=== PATIENT | female | born 1960 | race African-American/Black ===

== ENCOUNTER 2021-08-05 15:07 | Outpatient (CLI) | payer OTHER ==
[2021-08-06 16:11] LABS: SARS-CoV-2 PCR by NAA Not Detected (NotDetected)
== END 2021-08-05 15:08 | disposition home or self-care (01) ==
LOC: LABBT 15:07 → MERGE 15:07 → LABBT 15:08
PROVIDERS: ATTEND Specialist
DX: Z01.818 Encounter for other preprocedural examination (principal); E11.9 Type 2 diabetes mellitus without complications; Z93.2 Ileostomy status; Z93.3 Colostomy status; Z90.49 Acquired absence of other specified parts of digestive tract; Z79.01 Long term (current) use of anticoagulants; Z20.822 Contact with and (suspected) exposure to COVID-19
CPT/HCPCS: 93005; 93010; U0003; U0005

== ENCOUNTER 2021-10-12 01:40 | Emergency (ER) | payer MEDICARE, OTHER ==
[2021-10-12 02:41] LABS: #Basophils 0.1 thou/uL (0.0-0.2); #Eosinphils 0.1 thou/uL (0.0-0.7); #Lymphocytes 1.5 thou/uL (1.20-3.40); #Monocytes 0.6 thou/uL (0.11-0.59); %Eosinophils 2.4 % (0.0-10.0); %Lymphocytes 24.1 % (21.0-51.0); %Monocytes 8.9 % (0.0-10.0); %Neutrophils 63.6 % (42.0-75.0); Hemoglobin 10.3 g/dL (12.0-16.0); Mean Corpuscular HGB CONC 31.9 g/dL (32.0-36.0); Mean Corpuscular Hemoglobin 31.6 pg (27.0-31.0); Mean Corpuscular Volume 98.9 fL (78.0-98.0); Mean Platelet Volume 7.2 fL (7.4-10.4); Platelet Count 205 thou/uL (130-400); RBC Distribution Width 15.6 % (11.5-14.5); Red Blood Cell (RBC) Count 3.27 mill/uL (4.20-5.40); White Blood Cell (WBC) Count 6.3 thou/uL (4.8-10.8)
[2021-10-12 02:46] LABS: Bacteria/HPF None Seen HPF (None Seen); Bilirubin Negative (Negative); Blood, Urine 1+ (Negative); Clarity Clear (Clear); Glucose, Urine (Dipstick) 200 mg/dL (Negative); Ketone, Urine Negative (Negative); Leukocyte Negative Leu/uL (Negative); Nitrite Negative (Negative); Protein, Urine (Dipstick) 600 mg/dL (Neg-Trace); RBC/HPF 0-3 HPF (0-3); Specific Gravity, Urine 1.015 (1.002-1.036); Urobilinogen Normal mg/dL (Less than 2); WBC/HPF 21-50 HPF (0-3)
[2021-10-12 03:01] LABS: ALT (SGPT) 25 U/L (8-55); AST (SGOT) 19 U/L (5-34); Albumin 3.6 g/dL (3.5-5.0); Alkaline Phosphatase 253 U/L (40-110); Anion Gap 22 mmol/L (10-20); BUN (Urea Nitrogen) 104 mg/dL (9.8-20.1); Bilirubin, Total 0.7 mg/dL (0.2-1.2); Calc. Creatinine Clearance 0 mL/min (70-130); Calcium 9.6 mg/dL (7.8-10.44); Carbon Dioxide 23 mmol/L (22-29); Chloride 99 mmol/L (98-107); Globulin 3.4 g/dL (2.4-3.5); Glucose 87 mg/dL (70-105); Sodium 138 mmol/L (136-145)
== END 2021-10-12 04:30 | disposition home or self-care (01) ==
LOC: ERS 01:40
DX: N39.0 Urinary tract infection, site not specified (principal); E87.5 Hyperkalemia; E11.22 Type 2 diabetes mellitus with diabetic chronic kidney disease; I12.9 Hypertensive chronic kidney disease with stage 1 through stage 4 chronic kidney disease, or unspecified chronic kidney disease; N18.9 Chronic kidney disease, unspecified; E78.5 Hyperlipidemia, unspecified
CPT/HCPCS: 36415; 51701; 74176; 80053; 81003; 81015; 85025; 87086; 93005

== ENCOUNTER 2021-10-17 23:20 | Emergency (ER) | payer MEDICARE ==
[2021-10-18 00:55] LABS: #Eosinphils 0.1 thou/uL (0.0-0.7); #Lymphocytes 1.3 thou/uL (1.20-3.40); #Monocytes 0.6 thou/uL (0.11-0.59); #Neutrophils 4.4 thou/uL (1.40-6.50); %Basophils 0.5 % (0.0-1.0); %Eosinophils 2.1 % (0.0-10.0); %Lymphocytes 19.5 % (21.0-51.0); %Monocytes 9.9 % (0.0-10.0); Hemoglobin 10.8 g/dL (12.0-16.0); Mean Corpuscular Hemoglobin 31.1 pg (27.0-31.0); Platelet Count 245 thou/uL (130-400); RBC Distribution Width 15.3 % (11.5-14.5); Red Blood Cell (RBC) Count 3.47 mill/uL (4.20-5.40); White Blood Cell (WBC) Count 6.5 thou/uL (4.8-10.8)
[2021-10-18 01:18] LABS: ALT (SGPT) 21 U/L (8-55); AST (SGOT) 23 U/L (5-34); Albumin 3.7 g/dL (3.5-5.0); Alkaline Phosphatase 260 U/L (40-110); Anion Gap 18 mmol/L (10-20); BUN (Urea Nitrogen) 44 mg/dL (9.8-20.1); Bilirubin, Total 0.4 mg/dL (0.2-1.2); Calc. Creatinine Clearance 0 mL/min (70-130); Carbon Dioxide 27 mmol/L (22-29); Chloride 98 mmol/L (98-107); Globulin 3.8 g/dL (2.4-3.5); Glucose 107 mg/dL (70-105); Potassium 5.6 mmol/L (3.5-5.1); Protein, Total 7.5 g/dL (6.0-8.3); Sodium 137 mmol/L (136-145)
[2021-10-18 03:33] LABS: HBSAB Concentration Less than 8.00 mIU/mL; HBSAg Index 0.24 S/CO (0-0.99); Hep B Surf AB Non-Reactive (NonReactive); Hep B Surf Ag Non-Reactive S/CO (NonReactive)
== END 2021-10-18 06:12 | disposition home or self-care (01) ==
LOC: ERS 23:20
DX: I12.0 Hypertensive chronic kidney disease with stage 5 chronic kidney disease or end stage renal disease (principal); E11.22 Type 2 diabetes mellitus with diabetic chronic kidney disease; N18.6 End stage renal disease; E87.70 Fluid overload, unspecified; E78.5 Hyperlipidemia, unspecified
CPT/HCPCS: 36415; 71045; 80053; 85025; 86706; 87340

== ENCOUNTER 2021-12-26 15:28 | Inpatient (IN) | payer OTHER ==
[2021-12-26] MEDS ORDERED: Labetalol HCl 100 MG/20 ML VIAL ONE (16:06)
[2021-12-26 16:15] LABS: #Lymphocytes 0.7 thou/uL (1.20-3.40); #Monocytes 0.7 thou/uL (0.11-0.59); #Neutrophils 4.5 thou/uL (1.40-6.50); %Basophils 0.1 % (0.0-1.0); %Eosinophils 0.3 % (0.0-10.0); %Lymphocytes 11.2 % (21.0-51.0); %Monocytes 11.4 % (0.0-10.0); %Neutrophils 76.9 % (42.0-75.0); Hemoglobin 10.6 g/dL (12.0-16.0); Mean Corpuscular HGB CONC 31.2 g/dL (32.0-36.0); Mean Corpuscular Hemoglobin 30.7 pg (27.0-31.0); Mean Corpuscular Volume 98.6 fL (78.0-98.0); Mean Platelet Volume 8.1 fL (7.4-10.4); Platelet Count 170 thou/uL (130-400); RBC Distribution Width 15.6 % (11.5-14.5); Red Blood Cell (RBC) Count 3.45 mill/uL (4.20-5.40); White Blood Cell (WBC) Count 5.8 thou/uL (4.8-10.8)
[2021-12-26] MEDS ORDERED: Ipratropium Bromide 2.5 ml Neb ONE (16:21)
[2021-12-26] MEDS ORDERED: Albuterol Sulfate 2.5 mg/3 ml Neb ONE (16:21)
[2021-12-26 16:36] LABS: ALT (SGPT) 20 U/L (8-55); AST (SGOT) 30 U/L (5-34); Albumin 3.7 g/dL (3.5-5.0); Alkaline Phosphatase 348 U/L (40-110); Anion Gap 21 mmol/L (10-20); BUN (Urea Nitrogen) 47 mg/dL (9.8-20.1); Bilirubin, Total 0.6 mg/dL (0.2-1.2); Calc. Creatinine Clearance 0 mL/min (70-130); Calcium 9.2 mg/dL (7.8-10.44); Carbon Dioxide 23 mmol/L (22-29); Chloride 94 mmol/L (98-107); Estimated GFR 7; Globulin 3.9 g/dL (2.4-3.5); Glucose 116 mg/dL (70-105); Potassium 5.3 mmol/L (3.5-5.1); Protein, Total 7.6 g/dL (6.0-8.3); Sodium 133 mmol/L (136-145)
[2021-12-26] MEDS ORDERED: Ondansetron PF 4 MG/2 ML Vial IVP PRN (17:57)
[2021-12-26] MEDS ORDERED: Senokot S 8.6-50 MG TAB PO PRN (17:57)
[2021-12-26 18:54] LABS: HBSAB Concentration Less than 8.00 mIU/mL; HBSAg Index 0.23 S/CO (0-0.99); Hep B Surf AB Non-Reactive (NonReactive); Hep B Surf Ag Non-Reactive S/CO (NonReactive)
[2021-12-26 19:13] LABS: SARS-CoV-2 NAA Rapid Test DETECTED (NotDetected)
[2021-12-26] MEDS ORDERED: risperiDONE 1 MG TAB ONE (23:26)
[2021-12-27] MEDS: risperiDONE 1 MG TAB PO SCH ×2 (00:25→21:39)
[2021-12-27] MEDS: Calcium Acetate 667 MG CAP PO SCH ×4 (01:08→21:39)
[2021-12-27] MEDS: Apixaban 2.5 MG TAB PO SCH ×3 (01:08→21:39)
[2021-12-27 06:30] LABS: #Lymphocytes 0.8 thou/uL (1.20-3.40); #Monocytes 0.8 thou/uL (0.11-0.59); #Neutrophils 3.5 thou/uL (1.40-6.50); %Basophils 0.2 % (0.0-1.0); %Eosinophils 0.7 % (0.0-10.0); %Lymphocytes 16.1 % (21.0-51.0); %Monocytes 14.5 % (0.0-10.0); %Neutrophils 68.4 % (42.0-75.0); Hemoglobin 10.2 g/dL (12.0-16.0); Mean Corpuscular HGB CONC 29.3 g/dL (32.0-36.0); Mean Corpuscular Hemoglobin 29.2 pg (27.0-31.0); Mean Corpuscular Volume 99.8 fL (78.0-98.0); Platelet Count 182 thou/uL (130-400); RBC Distribution Width 15.5 % (11.5-14.5); Red Blood Cell (RBC) Count 3.51 mill/uL (4.20-5.40); White Blood Cell (WBC) Count 5.2 thou/uL (4.8-10.8)
[2021-12-27 06:52] LABS: Anion Gap 17 mmol/L (10-20); BUN (Urea Nitrogen) 28 mg/dL (9.8-20.1); Calc. Creatinine Clearance 0 mL/min (70-130); Carbon Dioxide 27 mmol/L (22-29); Chloride 95 mmol/L (98-107); Estimated GFR 10; Glucose 130 mg/dL (70-105); Potassium 4.3 mmol/L (3.5-5.1); Sodium 135 mmol/L (136-145)
[2021-12-27 07:19] LABS: MDiff Complete? YES; Platelet Morphology Comment Appears Adequate; Polychromasia SLIGHT = 2-3 cells (100X) (0-2/hpf)
[2021-12-27] MEDS: Folic Acid/Vit B Comp W-C PO SCH (09:44)
[2021-12-27] MEDS ORDERED: Ipratropium/Albuterol Sulfate 4 GM AER IH SCH (13:45)
[2021-12-27] MEDS: Guaifenesin DM 100-10/5 ML UDCUP PO PRN (21:39)
[2021-12-27] MEDS ORDERED: Labetalol HCl 100 MG/20 ML VIAL SLOW IVP PRN (21:50)
[2021-12-28] MEDS: Guaifenesin DM 100-10/5 ML UDCUP PO PRN ×2 (06:44→20:42)
[2021-12-28] MEDS: Ipratropium/Albuterol Sulfate 4 GM AER IH SCH ×5 (07:40→20:43)
[2021-12-28] MEDS: Calcium Acetate 667 MG CAP PO SCH ×3 (10:19→20:42)
[2021-12-28] MEDS: Apixaban 2.5 MG TAB PO SCH ×2 (10:19→20:42)
[2021-12-28] MEDS: Folic Acid/Vit B Comp W-C PO SCH (10:19)
[2021-12-28] MEDS ORDERED: Dexamethasone 6 MG in Sodium Chloride 0.9% 50 ML IVPB SCH (14:47)
[2021-12-28] MEDS ORDERED: Dexamethasone 4 mg/ml Vial SLOW IVP SCH (15:00)
[2021-12-28] MEDS: Loperamide HCl 2 MG CAP PO PRN (20:41)
[2021-12-28] MEDS: risperiDONE 1 MG TAB PO SCH (20:42)
[2021-12-28] MEDS: Acetaminophen 325 MG TAB PO PRN (20:42)
[2021-12-29] MEDS: Acetaminophen 325 MG TAB PO PRN ×2 (01:39→20:25)
[2021-12-29] MEDS: Loperamide HCl 2 MG CAP PO PRN ×2 (01:39→20:25)
[2021-12-29] MEDS: Albuterol 200 PUFF (6.7GM INHALER) INH SCH ×4 (01:39→20:25)
[2021-12-29] MEDS: Guaifenesin DM 100-10/5 ML UDCUP PO PRN ×2 (01:39→20:24)
[2021-12-29 06:13] VITALS: BMI 41.4
[2021-12-29] MEDS: Folic Acid/Vit B Comp W-C PO SCH (09:21)
[2021-12-29] MEDS: Dexamethasone 4 mg/ml Vial SLOW IVP SCH (09:21)
[2021-12-29] MEDS: Apixaban 2.5 MG TAB PO SCH ×2 (09:21→20:25)
[2021-12-29] MEDS: Calcium Acetate 667 MG CAP PO SCH ×3 (09:21→20:25)
[2021-12-29] MEDS: risperiDONE 1 MG TAB PO SCH (20:25)
[2021-12-29] MEDS ORDERED: Melatonin 3 MG TAB PO PRN (23:43)
[2021-12-30] MEDS: Acetaminophen 325 MG TAB PO PRN (00:51)
[2021-12-30] MEDS: Albuterol 200 PUFF (6.7GM INHALER) INH SCH ×4 (00:51→22:06)
[2021-12-30] MEDS: Guaifenesin DM 100-10/5 ML UDCUP PO PRN ×2 (04:17→21:50)
[2021-12-30] MEDS: Dexamethasone 4 mg/ml Vial SLOW IVP SCH (10:46)
[2021-12-30] MEDS: Calcium Acetate 667 MG CAP PO SCH ×3 (10:46→21:44)
[2021-12-30] MEDS: Folic Acid/Vit B Comp W-C PO SCH (10:46)
[2021-12-30] MEDS: Apixaban 2.5 MG TAB PO SCH ×2 (10:46→21:44)
[2021-12-30 20:18] LABS: Anion Gap 25 mmol/L (10-20); BUN (Urea Nitrogen) 90 mg/dL (9.8-20.1); Calc. Creatinine Clearance 10 mL/min (70-130); Calcium 7.6 mg/dL (7.8-10.44); Carbon Dioxide 22 mmol/L (22-29); Chloride 93 mmol/L (98-107); Estimated GFR 4; Glucose 241 mg/dL (70-105); Potassium 6.4 mmol/L (3.5-5.1); Sodium 134 mmol/L (136-145)
[2021-12-30] MEDS: risperiDONE 1 MG TAB PO SCH (21:57)
[2021-12-31] MEDS: Albuterol 200 PUFF (6.7GM INHALER) INH SCH ×4 (01:17→20:38)
[2021-12-31] MEDS: Acetaminophen 325 MG TAB PO PRN (01:31)
[2021-12-31] MEDS: Dexamethasone 4 mg/ml Vial SLOW IVP SCH (08:49)
[2021-12-31] MEDS: Calcium Acetate 667 MG CAP PO SCH ×3 (08:50→20:38)
[2021-12-31] MEDS: Folic Acid/Vit B Comp W-C PO SCH (08:50)
[2021-12-31] MEDS: Apixaban 2.5 MG TAB PO SCH ×2 (08:50→20:38)
[2021-12-31 17:07] LABS: Anion Gap 23 mmol/L (10-20); BUN (Urea Nitrogen) 66 mg/dL (9.8-20.1); CRP (Inflammatory) 3.07 mg/dL (= or < 0.5); Calc. Creatinine Clearance 14 mL/min (70-130); Calcium 8.3 mg/dL (7.8-10.44); Carbon Dioxide 21 mmol/L (22-29); Chloride 95 mmol/L (98-107); Estimated GFR 5; Glucose 246 mg/dL (70-105); Potassium 5.7 mmol/L (3.5-5.1); Sodium 133 mmol/L (136-145)
[2021-12-31] MEDS: risperiDONE 1 MG TAB PO SCH (20:38)
[2021-12-31] MEDS: Guaifenesin DM 100-10/5 ML UDCUP PO PRN (20:38)
[2021-12-31] MEDS: Loperamide HCl 2 MG CAP PO PRN (23:09)
[2022-01-01] MEDS: Albuterol 200 PUFF (6.7GM INHALER) INH SCH ×4 (02:55→21:04)
[2022-01-01] MEDS: Calcium Acetate 667 MG CAP PO SCH ×3 (08:36→21:05)
[2022-01-01] MEDS: Folic Acid/Vit B Comp W-C PO SCH (08:36)
[2022-01-01] MEDS: Dexamethasone 4 mg/ml Vial SLOW IVP SCH (08:36)
[2022-01-01] MEDS: Apixaban 2.5 MG TAB PO SCH ×2 (08:36→21:05)
[2022-01-01] MEDS: Guaifenesin DM 100-10/5 ML UDCUP PO PRN ×2 (08:40→21:04)
[2022-01-01 14:51] LABS: Magnesium 2.1 mg/dL (1.6-2.6)
[2022-01-01] MEDS: risperiDONE 1 MG TAB PO SCH (21:05)
[2022-01-01] MEDS: hydrALAZINE 20 MG/ML VIAL SLOW IVP PRN (21:05)
[2022-01-02] MEDS: Albuterol 200 PUFF (6.7GM INHALER) INH SCH ×4 (04:48→20:57)
[2022-01-02] MEDS: hydrALAZINE 20 MG/ML VIAL SLOW IVP PRN ×2 (04:58→16:40)
[2022-01-02] MEDS: Apixaban 2.5 MG TAB PO SCH ×2 (11:21→20:57)
[2022-01-02] MEDS: Calcium Acetate 667 MG CAP PO SCH ×3 (11:22→16:40)
[2022-01-02] MEDS: Dexamethasone 4 mg/ml Vial SLOW IVP SCH (13:51)
[2022-01-02] MEDS: Folic Acid/Vit B Comp W-C PO SCH (13:51)
[2022-01-02 15:04] LABS: Actual Bicarbonate (HCO3a) 28.4 mEq/L (22-28); Base Excess (BEa) 2.1 mEq/L (-2.0 to +3.0); CO2 Tension 51.3 mmHg (35.0-45.0); Calcium, Ionized (arterial) 1.08 mmol/L (1.12-1.30); Carboxyhemoglobin (COHb) 1.2 gm% (0.0-3.0); Hemoglobin (Hb) 12.7 g/dL (12.0-16.0); O2 Tension (PaO2), arterial 74.3 mmHg (80.0-100.0); Potassium - ABG Lab 3.85 mmol/L (3.70-5.30); pH, Arterial 7.36 (7.35-7.45)
[2022-01-02 15:05] LABS: Puncture Site LRA
[2022-01-02 16:25] LABS: #Lymphocytes 0.5 thou/uL (1.20-3.40); #Monocytes 0.3 thou/uL (0.11-0.59); %Eosinophils 0.4 % (0.0-10.0); %Lymphocytes 10.7 % (21.0-51.0); %Neutrophils 81.9 % (42.0-75.0); Hemoglobin 10.9 g/dL (12.0-16.0); Mean Corpuscular HGB CONC 31.3 g/dL (32.0-36.0); Mean Corpuscular Hemoglobin 30.6 pg (27.0-31.0); Mean Corpuscular Volume 97.7 fL (78.0-98.0); Mean Platelet Volume 7.8 fL (7.4-10.4); Platelet Count 191 thou/uL (130-400); RBC Distribution Width 15.2 % (11.5-14.5); Red Blood Cell (RBC) Count 3.58 mill/uL (4.20-5.40); White Blood Cell (WBC) Count 4.9 thou/uL (4.8-10.8)
[2022-01-02 16:39] LABS: Anion Gap 17 mmol/L (10-20); BUN (Urea Nitrogen) 47 mg/dL (9.8-20.1); Calc. Creatinine Clearance 17 mL/min (70-130); Carbon Dioxide 26 mmol/L (22-29); Chloride 98 mmol/L (98-107); Estimated GFR 7; Glucose 148 mg/dL (70-105); Potassium 4.3 mmol/L (3.5-5.1); Sodium 137 mmol/L (136-145)
[2022-01-02] MEDS ORDERED: traMADol HCl 50 MG TAB PO PRN (18:10)
[2022-01-02] MEDS: risperiDONE 1 MG TAB PO SCH (20:57)
[2022-01-03] MEDS: Albuterol 200 PUFF (6.7GM INHALER) INH SCH ×4 (03:30→19:01)
[2022-01-03] MEDS: Guaifenesin DM 100-10/5 ML UDCUP PO PRN (06:31)
[2022-01-03] MEDS ORDERED: traMADol HCl 50 MG TAB PO PRN (09:39)
[2022-01-03] MEDS: Apixaban 2.5 MG TAB PO SCH (09:51)
[2022-01-03] MEDS: Calcium Acetate 667 MG CAP PO SCH ×3 (09:51→17:29)
[2022-01-03] MEDS: Dexamethasone 4 mg/ml Vial SLOW IVP SCH (09:51)
[2022-01-03] MEDS: Folic Acid/Vit B Comp W-C PO SCH (09:51)
[2022-01-03 09:55] LABS: Anion Gap 21 mmol/L (10-20); BUN (Urea Nitrogen) 75 mg/dL (9.8-20.1); Calc. Creatinine Clearance 13 mL/min (70-130); Calcium 9.2 mg/dL (7.8-10.44); Carbon Dioxide 25 mmol/L (22-29); Chloride 97 mmol/L (98-107); Estimated GFR 5; Glucose 113 mg/dL (70-105); Potassium 4.5 mmol/L (3.5-5.1); Sodium 138 mmol/L (136-145)
[2022-01-03 16:03] VITALS: BP 162/90; TEMP 98.3
== END 2022-01-03 18:56 | disposition home or self-care (01) | DRG 177 ==
LOC: ERS 15:28 → ERHOLD 17:40 → 2NO 12-27 13:15 → T4-B 01-03 10:51
PROVIDERS: ADMIT Internal Medicine; ATTEND Internal Medicine
PROC: 5A09357 Assistance with Respiratory Ventilation, Less than 24 Consecutive Hours, Continuous Positive Airway Pressure (ICD-10-PCS; principal; 2021-12-26)
PROC: 8E0ZXY6 Isolation (ICD-10-PCS; 2021-12-26)
DX: U07.1 COVID-19 (principal); J96.21 Acute and chronic respiratory failure with hypoxia; N18.6 End stage renal disease; I13.0 Hypertensive heart and chronic kidney disease with heart failure and stage 1 through stage 4 chronic kidney disease, or unspecified chronic kidney disease; E87.1 Hypo-osmolality and hyponatremia; E87.2 Acidosis; E87.0 Hyperosmolality and hypernatremia; Z68.41 Body mass index [BMI] 40.0-44.9, adult; J44.9 Chronic obstructive pulmonary disease, unspecified; I50.9 Heart failure, unspecified; E11.22 Type 2 diabetes mellitus with diabetic chronic kidney disease; E78.5 Hyperlipidemia, unspecified; F41.9 Anxiety disorder, unspecified; R19.7 Diarrhea, unspecified; R53.83 Other fatigue; G47.33 Obstructive sleep apnea (adult) (pediatric); E66.9 Obesity, unspecified; F25.0 Schizoaffective disorder, bipolar type; D63.1 Anemia in chronic kidney disease; E87.5 Hyperkalemia; E88.09 Other disorders of plasma-protein metabolism, not elsewhere classified; R53.81 Other malaise; E87.70 Fluid overload, unspecified; Z88.0 Allergy status to penicillin; Z88.8 Allergy status to other drugs, medicaments and biological substances; Z91.09 Other allergy status, other than to drugs and biological substances; Z99.2 Dependence on renal dialysis; Z99.81 Dependence on supplemental oxygen; Z79.899 Other long term (current) drug therapy; Z86.718 Personal history of other venous thrombosis and embolism; Z79.4 Long term (current) use of insulin; Z90.49 Acquired absence of other specified parts of digestive tract; Z85.41 Personal history of malignant neoplasm of cervix uteri; Z92.3 Personal history of irradiation; Z80.1 Family history of malignant neoplasm of trachea, bronchus and lung; Z99.3 Dependence on wheelchair; Z79.01 Long term (current) use of anticoagulants; Z98.890 Other specified postprocedural states
CPT/HCPCS: 36415; 36416; 36600; 71045; 80048; 80053; 82553; 82805; 83605; 83735; 83880; 84484; 85025; 86140; 86706; 87340; 90935; 93005; 94644; 94660; 94760; 96374; G0257; J0360; J1100; J3535; J7611; J7620; U0002

== ENCOUNTER 2022-01-03 17:00 | Outpatient (CLI) | payer OTHER | END 2022-01-03 17:01 | disposition home or self-care (01) | LOC: SLEEPLAB 17:00 | PROVIDERS: ATTEND Internal Medicine | DX: G47.33 Obstructive sleep apnea (adult) (pediatric) (principal); R09.89 Other specified symptoms and signs involving the circulatory and respiratory systems; F31.9 Bipolar disorder, unspecified; E11.9 Type 2 diabetes mellitus without complications; E66.9 Obesity, unspecified; I10 Essential (primary) hypertension; Z68.41 Body mass index [BMI] 40.0-44.9, adult | CPT/HCPCS: 95800 ==

== ENCOUNTER 2022-08-21 17:45 | Inpatient (IN) | payer MEDICARE, OTHER ==
[2022-08-21] MEDS ORDERED: Ondansetron PF 4 MG/2 ML Vial ONE (18:37)
[2022-08-21] MEDS ORDERED: Morphine 4 MG/ML VIAL ONE (18:37)
[2022-08-21 18:46] LABS: #Eosinphils 0.2 thou/uL (0.0-0.7); #Lymphocytes 1.1 thou/uL (1.20-3.40); #Monocytes 0.6 thou/uL (0.11-0.59); #Neutrophils 4.9 thou/uL (1.40-6.50); %Basophils 0.1 % (0.0-1.0); %Eosinophils 2.5 % (0.0-10.0); %Lymphocytes 16.3 % (21.0-51.0); %Monocytes 8.8 % (0.0-10.0); %Neutrophils 72.2 % (42.0-75.0); Hemoglobin 10.9 g/dL (12.0-16.0); Mean Corpuscular HGB CONC 30.4 g/dL (32.0-36.0); Mean Corpuscular Hemoglobin 31.1 pg (27.0-31.0); Mean Platelet Volume 7.7 fL (7.4-10.4); Platelet Count 230 10x3/uL (130-400); RBC Distribution Width 16.8 % (11.5-14.5); Red Blood Cell (RBC) Count 3.51 mill/uL (4.20-5.40); White Blood Cell (WBC) Count 6.8 10x3/uL (4.8-10.8)
[2022-08-21 19:05] LABS: ALT (SGPT) 24 U/L (8-55); AST (SGOT) 22 U/L (5-34); Albumin 3.7 g/dL (3.5-5.0); Alkaline Phosphatase 296 U/L (40-110); Anion Gap 17 mmol/L (10-20); BUN (Urea Nitrogen) 41 mg/dL (9.8-20.1); Bilirubin, Total 0.5 mg/dL (0.2-1.2); Calc. Creatinine Clearance 0 mL/min (70-130); Calcium 9.7 mg/dL (7.8-10.44); Carbon Dioxide 30 mmol/L (22-29); Chloride 95 mmol/L (98-107); Estimated GFR 6; Globulin 3.7 g/dL (2.4-3.5); Glucose 106 mg/dL (70-105); Lipase 16 U/L (8-78); Potassium 4.7 mmol/L (3.5-5.1); Protein, Total 7.4 g/dL (6.0-8.3); Sodium 137 mmol/L (136-145)
[2022-08-21 19:26] LABS: CKMB 1.5 ng/mL (0-6.6)
[2022-08-21] MEDS ORDERED: Cefepime 2 GM VIAL ONE (19:51)
[2022-08-21] MEDS ORDERED: Ketamine In 0.9 % NaCl 50 MG/5 ML SYRINGE ONE (20:22)
[2022-08-21] MEDS ORDERED: Midazolam HCl 2 mg/2 ml Vial ONE (20:39)
[2022-08-21] MEDS ORDERED: fentaNYL 50 mcg/mL 1 mL Vial ONE (20:46)
[2022-08-21] MEDS ORDERED: Propofol 1,000 MG/100 ML VIAL IV ONE (20:56)
[2022-08-21] MEDS ORDERED: Albuterol 2.5 MG/0.5 ML NEB ONE (21:13)
[2022-08-21] MEDS ORDERED: Fentanyl CADD 100 ML IV SCH (21:30)
[2022-08-21] MEDS ORDERED: Ipratropium/Albuterol 3 ML NEB NEB PRN (21:34)
[2022-08-21] MEDS ORDERED: methylPREDNISolone Sod Succ/PF 125 MG/2 ML VIAL IVP SCH (21:41)
[2022-08-21 21:45] LABS: Actual Bicarbonate (HCO3a) 37.3 mEq/L (22-28); Analyzer IN Cardio ER; Base Excess (BEa) 2.7 mEq/L (-2.0 to +3.0); Calcium, Ionized (arterial) 1.27 mmol/L (1.12-1.30); O2 Tension (PaO2), arterial 77.2 mmHg (> 80.0); Potassium - ABG Lab 5.03 mmol/L (3.70-5.30)
[2022-08-21] MEDS ORDERED: Acetaminophen 650 MG Suppository PR PRN (21:46)
[2022-08-21] MEDS ORDERED: Ondansetron PF 4 MG/2 ML Vial IVP PRN (21:46)
[2022-08-21] MEDS ORDERED: Dextrose 5% in Water 1,000 ML IV PRN (21:46)
[2022-08-21] MEDS ORDERED: Dextrose 50% Abboject 50 ML SYRINGE SLOW IVP PRN (21:46)
[2022-08-21] MEDS ORDERED: HumaLOG 300 UNITS/3 ML VIAL SC PRN ×2 (21:46)
[2022-08-21 21:51] LABS: CO2 Tension 153.5 mmHg (35.0-45.0); Puncture Site RRA
[2022-08-21 21:52] LABS: ALV-art Gradient 443.925 mmHg (0-20)
[2022-08-21] MEDS ORDERED: Midazolam HCl 5 mg/ml Vial ONE ×3 (21:56→23:04)
[2022-08-21] MEDS ORDERED: Doxycycline 100 MG in Sodium Chloride 0.9% 100 ML IVPB SCH (22:00)
[2022-08-21] MEDS ORDERED: Ipratropium/Albuterol 3 ML NEB NEB SCH (22:30)
[2022-08-21 23:19] LABS: Actual Bicarbonate (HCO3a) 26.3 mEq/L (22-28); Analyzer IN Cardio ER; Base Excess (BEa) 2.8 mEq/L (-2.0 to +3.0); CO2 Tension 36.3 mmHg (35.0-45.0); Calcium, Ionized (arterial) 1.11 mmol/L (1.12-1.30); Carboxyhemoglobin (COHb) 0.1 gm% (0.0-3.0); Hemoglobin (Hb) 11.3 g/dL (12.0-16.0); O2 Tension (PaO2), arterial 283.2 mmHg (> 80.0); pH, Arterial 7.48 (7.35-7.45)
[2022-08-21 23:28] LABS: Puncture Site RRA
[2022-08-21 23:29] LABS: ALV-art Gradient 384.425 mmHg (0-20)
[2022-08-22] MEDS ORDERED: Vancomycin 1 GM/200 ML (FROZEN) BAG ONE (00:30)
[2022-08-22 01:06] LABS: Troponin I 0.033 ng/mL (< 0.028)
[2022-08-22 01:22] LABS: HBSAB Concentration Less than 8.00 mIU/mL; HBSAg Index 0.21 S/CO (0-0.99); Hep B Core Total Ab Non-Reactive (NonReactive); Hep B Core Total Index 0.12 S/CO (0-0.79); Hep B Surf AB Non-Reactive (NonReactive); Hep B Surf Ag Non-Reactive S/CO (NonReactive); Hep C IgG Ab Non-Reactive (NonReactive); Hep C Index 0.12 S/CO (0-0.79)
[2022-08-22] MEDS ORDERED: Fentanyl BOLUS 250 ML IVPB PRN ×2 (01:45→17:30)
[2022-08-22] MEDS ORDERED: DISCONTINUE PREVIOUS NARCOTIC PAIN MEDICATIONS AND BENZODIAZEPINES FS SCH ×2 (01:45→17:30)
[2022-08-22] MEDS ORDERED: Morphine 2 MG/ML VIAL SLOW IVP PRN ×2 (01:45→17:30)
[2022-08-22] MEDS ORDERED: Propofol 1,000 MG/100 ML VIAL IV PRN ×2 (01:45→17:30)
[2022-08-22] MEDS ORDERED: Lorazepam 2 MG/ML VIAL SLOW IVP PRN ×2 (01:45→17:30)
[2022-08-22] MEDS ORDERED: Propofol BOLUS 1,000 MG/100 ML VIAL IV PRN ×2 (01:45→17:30)
[2022-08-22 01:58] LABS: #Eosinphils 0.1 thou/uL (0.0-0.7); #Lymphocytes 1.1 thou/uL (1.20-3.40); #Monocytes 0.7 thou/uL (0.11-0.59); #Neutrophils 6.3 thou/uL (1.40-6.50); %Basophils 0.2 % (0.0-1.0); %Lymphocytes 13.3 % (21.0-51.0); %Monocytes 8.8 % (0.0-10.0); %Neutrophils 76.7 % (42.0-75.0); Hemoglobin 9.5 g/dL (12.0-16.0); Mean Corpuscular HGB CONC 31.9 g/dL (32.0-36.0); Mean Corpuscular Hemoglobin 31.5 pg (27.0-31.0); Mean Corpuscular Volume 98.8 fl (78.0-98.0); Mean Platelet Volume 8.1 fL (7.4-10.4); Platelet Count 203 10x3/uL (130-400); RBC Distribution Width 16.7 % (11.5-14.5); Red Blood Cell (RBC) Count 3.01 mill/uL (4.20-5.40); White Blood Cell (WBC) Count 8.3 10x3/uL (4.8-10.8)
[2022-08-22 02:11] LABS: Anion Gap 20 mmol/L (10-20); BUN (Urea Nitrogen) 48 mg/dL (9.8-20.1); Calc. Creatinine Clearance 0 mL/min (70-130); Carbon Dioxide 24 mmol/L (22-29); Chloride 99 mmol/L (98-107); Estimated GFR 6; Glucose 93 mg/dL (70-105); Potassium 4.8 mmol/L (3.5-5.1); Sodium 138 mmol/L (136-145)
[2022-08-22] MEDS ORDERED: Famotidine/PF 20 mg/2ml Vial SLOW IVP SCH (09:00)
[2022-08-22] MEDS: Apixaban 2.5 MG TAB PER TUBE SCH ×2 (09:26→21:44)
[2022-08-22] MEDS ORDERED: Heparin 10,000 UNITS/ 10 ML VIAL ONE (10:10)
[2022-08-22] MEDS: Doxycycline 100 MG in Sodium Chloride 0.9% 100 ML IVPB SCH (14:37)
[2022-08-22] MEDS ORDERED: Fentanyl CADD 100 ML ONE (17:19)
[2022-08-22] MEDS ORDERED: Fentanyl CADD 100 ML IV SCH (17:30)
[2022-08-23] MEDS: Doxycycline 100 MG in Sodium Chloride 0.9% 100 ML IVPB SCH ×2 (02:45→13:30)
[2022-08-23 05:00] LABS: #Lymphocytes 1.1 thou/uL (1.20-3.40); #Monocytes 0.7 thou/uL (0.11-0.59); #Neutrophils 5.4 thou/uL (1.40-6.50); %Basophils 0.2 % (0.0-1.0); %Eosinophils 0.4 % (0.0-10.0); %Lymphocytes 14.6 % (21.0-51.0); %Monocytes 9.5 % (0.0-10.0); %Neutrophils 75.3 % (42.0-75.0); Hemoglobin 10.3 g/dL (12.0-16.0); Mean Corpuscular HGB CONC 32.4 g/dL (32.0-36.0); Mean Corpuscular Hemoglobin 31.4 pg (27.0-31.0); Mean Corpuscular Volume 96.7 fl (78.0-98.0); Mean Platelet Volume 8.3 fL (7.4-10.4); Platelet Count 214 10x3/uL (130-400); RBC Distribution Width 17.6 % (11.5-14.5); Red Blood Cell (RBC) Count 3.29 mill/uL (4.20-5.40); White Blood Cell (WBC) Count 7.2 10x3/uL (4.8-10.8)
[2022-08-23 05:12] LABS: Anion Gap 23 mmol/L (10-20); BUN (Urea Nitrogen) 39 mg/dL (9.8-20.1); Calc. Creatinine Clearance 17 mL/min (70-130); Calcium 9.8 mg/dL (7.8-10.44); Carbon Dioxide 23 mmol/L (22-29); Chloride 96 mmol/L (98-107); Estimated GFR 7; Glucose 81 mg/dL (70-105); Sodium 138 mmol/L (136-145)
[2022-08-23] MEDS ORDERED: NOREPINEPHRINE 8 MG/250 ML-D5W 250 ML IVPB SCH (07:45)
[2022-08-23 07:54] LABS: Actual Bicarbonate (HCO3a) 25.1 mEq/L (22-28); Base Excess (BEa) 4.3 mEq/L (-2.0 to +3.0); CO2 Tension 25.8 mmHg (35.0-45.0); Carboxyhemoglobin (COHb) 0.5 gm% (0.0-3.0); Hemoglobin (Hb) 10.9 g/dL (12.0-16.0); O2 Tension (PaO2), arterial 98.1 mmHg (> 80.0); Potassium - ABG Lab 3.81 mmol/L (3.70-5.30)
[2022-08-23 07:56] LABS: Puncture Site LRA; pH, Arterial 7.61 (7.35-7.45)
[2022-08-23] MEDS ORDERED: DC Sedation Protocol FS ONE (08:07)
[2022-08-23] MEDS: Famotidine 20 MG TAB PO SCH (09:09)
[2022-08-23] MEDS: Apixaban 2.5 MG TAB PER TUBE SCH ×2 (09:10→21:15)
[2022-08-23] MEDS ORDERED: Heparin 10,000 UNITS/ 10 ML VIAL ONE (11:22)
[2022-08-23] MEDS: Acetaminophen 325 MG TAB PO PRN ×2 (13:31→23:03)
[2022-08-23] MEDS: Ondansetron ODT 4 MG TAB PO PRN ×2 (13:39→23:07)
[2022-08-24] MEDS ORDERED: hydrOXYzine 25 MG TAB PO SCH (01:45)
[2022-08-24] MEDS: Doxycycline 100 MG in Sodium Chloride 0.9% 100 ML IVPB SCH (01:53)
[2022-08-24 04:30] LABS: #Eosinphils 0.1 thou/uL (0.0-0.7); #Lymphocytes 1.2 thou/uL (1.20-3.40); #Monocytes 0.7 thou/uL (0.11-0.59); #Neutrophils 3.7 thou/uL (1.40-6.50); %Basophils 0.6 % (0.0-1.0); %Eosinophils 2.6 % (0.0-10.0); %Lymphocytes 21.3 % (21.0-51.0); %Monocytes 12.2 % (0.0-10.0); %Neutrophils 63.3 % (42.0-75.0); Hemoglobin 9.2 g/dL (12.0-16.0); Mean Corpuscular HGB CONC 30.1 g/dL (32.0-36.0); Mean Corpuscular Hemoglobin 30.6 pg (27.0-31.0); Mean Platelet Volume 7.5 fL (7.4-10.4); Platelet Count 202 10x3/uL (130-400); White Blood Cell (WBC) Count 5.8 10x3/uL (4.8-10.8)
[2022-08-24 04:52] LABS: Anion Gap 17 mmol/L (10-20); BUN (Urea Nitrogen) 33 mg/dL (9.8-20.1); Calc. Creatinine Clearance 17 mL/min (70-130); Calcium 8.7 mg/dL (7.8-10.44); Carbon Dioxide 28 mmol/L (22-29); Chloride 97 mmol/L (98-107); Estimated GFR 7; Glucose 80 mg/dL (70-105); Potassium 3.9 mmol/L (3.5-5.1); Sodium 138 mmol/L (136-145)
[2022-08-24] MEDS: Apixaban 2.5 MG TAB PER TUBE SCH ×2 (08:33→20:05)
[2022-08-24] MEDS: Carvedilol 3.125 MG TAB PO SCH (15:14)
[2022-08-24] MEDS: Sevelamer Carbonate 800 MG TAB PO SCH (16:29)
[2022-08-24] MEDS: risperiDONE 1 MG TAB PO SCH (20:05)
[2022-08-25] MEDS ORDERED: Heparin 10,000 UNITS/ 10 ML VIAL ONE (08:36)
[2022-08-25] MEDS: Sevelamer Carbonate 800 MG TAB PO SCH ×3 (09:16→17:51)
[2022-08-25] MEDS: Carvedilol 3.125 MG TAB PO SCH ×2 (09:16→17:51)
[2022-08-25] MEDS: Apixaban 2.5 MG TAB PER TUBE SCH ×2 (09:16→21:55)
[2022-08-25] MEDS: Famotidine 20 MG TAB PO SCH (09:16)
[2022-08-25] MEDS: Folic Acid/Vit B Comp W-C PO SCH (09:16)
[2022-08-25] MEDS: risperiDONE 1 MG TAB PO SCH (21:55)
[2022-08-26] MEDS: Ondansetron ODT 4 MG TAB PO PRN ×2 (09:30→22:01)
[2022-08-26] MEDS: Apixaban 2.5 MG TAB PER TUBE SCH ×2 (09:31→19:59)
[2022-08-26] MEDS: Sevelamer Carbonate 800 MG TAB PO SCH ×3 (09:31→16:50)
[2022-08-26] MEDS: Folic Acid/Vit B Comp W-C PO SCH (09:31)
[2022-08-26] MEDS: Carvedilol 3.125 MG TAB PO SCH ×2 (09:31→16:50)
[2022-08-26] MEDS ORDERED: Scopolamine 1.5 mg/72 hour Patch TD SCH (11:00)
[2022-08-26] MEDS: risperiDONE 1 MG TAB PO SCH (19:59)
[2022-08-26] MEDS: Docusate 100 MG CAP PO PRN (22:01)
[2022-08-27 07:26] LABS: #Eosinphils 0.3 thou/uL (0.0-0.7); #Lymphocytes 1.2 thou/uL (1.20-3.40); #Monocytes 0.7 thou/uL (0.11-0.59); #Neutrophils 4.4 thou/uL (1.40-6.50); %Basophils 0.5 % (0.0-1.0); %Lymphocytes 18.2 % (21.0-51.0); %Monocytes 10.9 % (0.0-10.0); %Neutrophils 66.4 % (42.0-75.0); Hemoglobin 10.3 g/dL (12.0-16.0); Mean Corpuscular Volume 99.9 fl (78.0-98.0); Mean Platelet Volume 7.6 fL (7.4-10.4); Platelet Count 189 10x3/uL (130-400); RBC Distribution Width 16.5 % (11.5-14.5); Red Blood Cell (RBC) Count 3.32 mill/uL (4.20-5.40); White Blood Cell (WBC) Count 6.6 10x3/uL (4.8-10.8)
[2022-08-27 07:45] LABS: Anion Gap 18 mmol/L (10-20); BUN (Urea Nitrogen) 59 mg/dL (9.8-20.1); Calc. Creatinine Clearance 12 mL/min (70-130); Calcium 9.6 mg/dL (7.8-10.44); Carbon Dioxide 27 mmol/L (22-29); Chloride 97 mmol/L (98-107); Estimated GFR 5; Glucose 141 mg/dL (70-105); Magnesium 2.7 mg/dL (1.6-2.6); Potassium 4.9 mmol/L (3.5-5.1); Sodium 137 mmol/L (136-145)
[2022-08-27] MEDS: Apixaban 2.5 MG TAB PER TUBE SCH ×2 (08:42→21:50)
[2022-08-27] MEDS: Folic Acid/Vit B Comp W-C PO SCH (08:42)
[2022-08-27] MEDS: Docusate 100 MG CAP PO PRN (08:43)
[2022-08-27] MEDS: Sevelamer Carbonate 800 MG TAB PO SCH ×3 (08:43→17:37)
[2022-08-27] MEDS: Carvedilol 3.125 MG TAB PO SCH ×2 (08:43→17:36)
[2022-08-27] MEDS: Famotidine 20 MG TAB PO SCH (08:43)
[2022-08-27] MEDS ORDERED: Bisacodyl 10 MG SUPP PR SCH (10:00)
[2022-08-27] MEDS ORDERED: Magnesium Citrate 300 ML BOT PO SCH (10:00)
[2022-08-27] MEDS: risperiDONE 1 MG TAB PO SCH (21:50)
[2022-08-27] MEDS: Acetaminophen 325 MG TAB PO PRN (21:54)
[2022-08-28] MEDS: Carvedilol 3.125 MG TAB PO SCH ×2 (10:20→17:20)
[2022-08-28] MEDS: Sevelamer Carbonate 800 MG TAB PO SCH ×3 (10:20→17:20)
[2022-08-28] MEDS: Folic Acid/Vit B Comp W-C PO SCH (10:20)
[2022-08-28] MEDS: Apixaban 2.5 MG TAB PER TUBE SCH ×2 (10:20→21:16)
[2022-08-28] MEDS ORDERED: Heparin 10,000 UNITS/ 10 ML VIAL ONE (15:40)
[2022-08-28] MEDS: risperiDONE 1 MG TAB PO SCH (21:15)
[2022-08-28] MEDS: Acetaminophen 325 MG TAB PO PRN (22:46)
[2022-08-29] MEDS: Folic Acid/Vit B Comp W-C PO SCH (08:15)
[2022-08-29] MEDS: Sevelamer Carbonate 800 MG TAB PO SCH ×2 (08:15→13:56)
[2022-08-29] MEDS: Carvedilol 3.125 MG TAB PO SCH (08:15)
[2022-08-29] MEDS: Apixaban 2.5 MG TAB PER TUBE SCH (08:15)
[2022-08-29] MEDS: Famotidine 20 MG TAB PO SCH (08:18)
[2022-08-29 15:19] VITALS: BMI 40.8
[2022-08-29 17:05] VITALS: BP 122/59; TEMP 98.9
== END 2022-08-29 17:42 | disposition home or self-care (01) | DRG 640 ==
LOC: ERS 17:45 → CCU 20:59 → T4-B 08-24 13:36
PROVIDERS: ADMIT Family Medicine; ATTEND Family Medicine
PROC: 5A1D70Z Performance of Urinary Filtration, Intermittent, Less than 6 Hours Per Day (ICD-10-PCS; principal; 2022-08-21)
PROC: 5A1945Z Respiratory Ventilation, 24-96 Consecutive Hours (ICD-10-PCS; 2022-08-21)
PROC: 0BH17EZ Insertion of Endotracheal Airway into Trachea, Via Natural or Artificial Opening (ICD-10-PCS; 2022-08-21)
PROC: 05HY33Z Insertion of Infusion Device into Upper Vein, Percutaneous Approach (ICD-10-PCS; 2022-08-21)
DX: E87.70 Fluid overload, unspecified (principal); J96.21 Acute and chronic respiratory failure with hypoxia; N18.6 End stage renal disease; J96.22 Acute and chronic respiratory failure with hypercapnia; I12.0 Hypertensive chronic kidney disease with stage 5 chronic kidney disease or end stage renal disease; T82.524A Displacement of infusion catheter, initial encounter; J44.1 Chronic obstructive pulmonary disease with (acute) exacerbation; Z68.41 Body mass index [BMI] 40.0-44.9, adult; E11.22 Type 2 diabetes mellitus with diabetic chronic kidney disease; G47.33 Obstructive sleep apnea (adult) (pediatric); Y84.8 Other medical procedures as the cause of abnormal reaction of the patient, or of later complication, without mention of misadventure at the time of the procedure; D63.1 Anemia in chronic kidney disease; E78.5 Hyperlipidemia, unspecified; E66.01 Morbid (severe) obesity due to excess calories; R11.0 Nausea; K59.00 Constipation, unspecified; Z78.1 Physical restraint status; Z99.2 Dependence on renal dialysis; Z99.89 Dependence on other enabling machines and devices; Z86.718 Personal history of other venous thrombosis and embolism; Z79.01 Long term (current) use of anticoagulants; Z88.0 Allergy status to penicillin; Z88.7 Allergy status to serum and vaccine; Z88.8 Allergy status to other drugs, medicaments and biological substances; Z91.041 Radiographic dye allergy status; Z99.81 Dependence on supplemental oxygen; Z79.899 Other long term (current) drug therapy; Z79.84 Long term (current) use of oral hypoglycemic drugs; Z93.3 Colostomy status; Z98.890 Other specified postprocedural states
CPT/HCPCS: 31500; 36415; 36416; 36556; 36600; 51702; 71045; 74018; 74176; 80048; 80053; 82553; 82805; 83605; 83690; 83735; 84145; 84484; 85025; 86704; 87040; 87086; 90935; 93005; 93306; 94002; 94003; 94644; 94660; 96365; 96368; 96372; 96374; 96375; G0257; J0692; J1644; J2060; J2250; J2270; J2405; J2704; J2930; J3010; J3370-JW; J3490; J7611; Q0162; S0028

== ENCOUNTER 2022-12-12 22:19 | Inpatient (IN) | payer OTHER ==
[2022-12-13] MEDS ORDERED: Ondansetron PF 4 MG/2 ML Vial IVP PRN (02:01)
[2022-12-13] MEDS ORDERED: Ondansetron ODT 4 MG TAB PO PRN (02:01)
[2022-12-13] MEDS ORDERED: Acetaminophen 650 MG Suppository PR PRN (02:01)
[2022-12-13] MEDS ORDERED: Ipratropium/Albuterol 3 ML NEB NEB PRN (02:22)
[2022-12-13 03:18] LABS: Actual Bicarbonate (HCO3a) 33.8 mEq/L (22-28); Base Excess (BEa) 2.5 mEq/L (-2.0 to +3.0); Carboxyhemoglobin (COHb) 2.5 gm% (0.0-3.0); Hematocrit-ABG 29 % (36.0-47.0); Potassium - ABG Lab 4.51 mmol/L (3.70-5.30)
[2022-12-13 03:23] LABS: Puncture Site LBA
[2022-12-13] MEDS ORDERED: Propofol BOLUS 1,000 MG/100 ML VIAL IV PRN (04:00)
[2022-12-13] MEDS ORDERED: DISCONTINUE PREVIOUS NARCOTIC PAIN MEDICATIONS AND BENZODIAZEPINES FS SCH (04:00)
[2022-12-13] MEDS ORDERED: Fentanyl BOLUS 250 ML IVPB PRN (04:00)
[2022-12-13] MEDS ORDERED: Fentanyl CADD 100 ML IV SCH (04:00)
[2022-12-13] MEDS ORDERED: Ventilator Sedation Protocol 1 EACH FS SCH (04:00)
[2022-12-13] MEDS ORDERED: Rocuronium Bromide 10 MG/ML (10ML VIAL) IVP SCH (04:00)
[2022-12-13] MEDS ORDERED: Morphine 2 MG/ML VIAL SLOW IVP PRN (04:00)
[2022-12-13 04:05] LABS: Actual Bicarbonate (HCO3a) 25.6 mEq/L (22-28); Base Excess (BEa) 1.5 mEq/L (-2.0 to +3.0); CO2 Tension 38.2 mmHg (35.0-45.0); Calcium, Ionized (arterial) 1.11 mmol/L (1.12-1.30); Carboxyhemoglobin (COHb) 1.9 gm% (0.0-3.0); Hematocrit-ABG 28 % (36.0-47.0); Hemoglobin (Hb) 9.5 g/dL (12.0-16.0); O2 Tension (PaO2), arterial 469.8 mmHg (> 80.0); Potassium - ABG Lab 4.54 mmol/L (3.70-5.30); pH, Arterial 7.444 (7.35-7.45)
[2022-12-13] MEDS: Propofol 1,000 MG/100 ML VIAL IV PRN ×5 (04:39→22:28)
[2022-12-13] MEDS ORDERED: GLYCOPYRROLATE/PF 0.2 MG/ML VIAL SLOW IVP SCH (04:45)
[2022-12-13] MEDS ORDERED: Dextrose 5% in Water 1,000 ML IV PRN (04:47)
[2022-12-13] MEDS ORDERED: Dextrose 50% Abboject 50 ML SYRINGE SLOW IVP PRN (04:47)
[2022-12-13] MEDS ORDERED: Glucagon 1 MG/ML KIT IM PRN (04:47)
[2022-12-13] MEDS: Lorazepam 2 MG/ML VIAL SLOW IVP PRN (05:08)
[2022-12-13 07:22] LABS: #Eosinphils 0.1 thou/uL (0.0-0.7); #Monocytes 0.9 thou/uL (0.11-0.59); #Neutrophils 7.6 thou/uL (1.40-6.50); %Basophils 0.2 % (0.0-1.0); %Eosinophils 1.4 % (0.0-10.0); %Monocytes 8.6 % (0.0-10.0); %Neutrophils 73.4 % (42.0-75.0); Hematocrit 27.6 % (36.0-47.0); Hemoglobin 8.5 g/dL (12.0-16.0); Mean Corpuscular HGB CONC 30.8 g/dL (32.0-36.0); Mean Corpuscular Hemoglobin 31.3 pg (27.0-31.0); Mean Corpuscular Volume 101.5 fl (78.0-98.0); Platelet Count 234 10x3/uL (130-400); RBC Distribution Width 13.9 % (11.5-14.5); Red Blood Cell (RBC) Count 2.72 mill/uL (4.20-5.40); White Blood Cell (WBC) Count 10.3 10x3/uL (4.8-10.8)
[2022-12-13] MEDS: Ipratropium/Albuterol 3 ML NEB NEB SCH ×4 (07:23→23:21)
[2022-12-13 07:37] LABS: Actual Bicarbonate (HCO3a) 24.7 mEq/L (22-28); Base Excess (BEa) 2.5 mEq/L (-2.0 to +3.0); CO2 Tension 29.5 mmHg (35.0-45.0); Calcium, Ionized (arterial) 1.07 mmol/L (1.12-1.30); Carboxyhemoglobin (COHb) 1.7 gm% (0.0-3.0); Hematocrit-ABG 28 % (36.0-47.0); Hemoglobin (Hb) 9.6 g/dL (12.0-16.0); Potassium - ABG Lab 3.61 mmol/L (3.70-5.30)
[2022-12-13 07:39] LABS: ALV-art Gradient 189.325 mmHg (0-20); Puncture Site LRA
[2022-12-13 07:50] LABS: Anion Gap 19 mmol/L (10-20); BUN (Urea Nitrogen) 64 mg/dL (9.8-20.1); Calc. Creatinine Clearance 15 mL/min (70-130); Calcium 9.2 mg/dL (7.8-10.44); Carbon Dioxide 23 mmol/L (22-29); Chloride 96 mmol/L (98-107); Estimated GFR 6; Glucose 99 mg/dL (70-105); Potassium 3.9 mmol/L (3.5-5.1); Sodium 134 mmol/L (136-145)
[2022-12-13] MEDS: Famotidine/PF 20 mg/2ml Vial SLOW IVP SCH ×2 (08:12→19:37)
[2022-12-13] MEDS ORDERED: Dexamethasone 4 mg/ml Vial SLOW IVP SCH (09:00)
[2022-12-13] MEDS ORDERED: Senokot S 8.6-50 MG TAB PO SCH (10:30)
[2022-12-13] MEDS ORDERED: Polyethylene Glycol 3350 17 GM Packet PER TUBE SCH (10:30)
[2022-12-13] MEDS ORDERED: Senokot S 8.6-50 MG TAB PER TUBE SCH (10:30)
[2022-12-13] MEDS ORDERED: Apixaban 2.5 MG TAB PO SCH (10:30)
[2022-12-13] MEDS ORDERED: Dexamethasone 10 MG/ML VIAL SLOW IVP SCH (10:30)
[2022-12-13] MEDS ORDERED: Heparin 10,000 UNITS/ 10 ML VIAL ONE (10:38)
[2022-12-13] MEDS: cefTRIAXone\\ROCEPHIN 1 GM in Sodium Chloride 0.9% 100 ML IVPB SCH (10:40)
[2022-12-13] MEDS ORDERED: VANCOMYCIN 2 GRAM/500 ML BAG 2 GM in Premix Bag 1 BAG IVPB SCH (12:00)
[2022-12-13] MEDS ORDERED: Vancomycin Dialysis Sliding Scale (Wt > 99) FS SCH (12:00)
[2022-12-13] MEDS: Apixaban 2.5 MG TAB PO SCH (19:37)
[2022-12-13] MEDS: Senokot S 8.6-50 MG TAB PER TUBE SCH (19:37)
[2022-12-13] MEDS ORDERED: Vancomycin 1 GM in Premix Bag 1 BAG IVPB SCH (21:00)
[2022-12-14] MEDS: Propofol 1,000 MG/100 ML VIAL IV PRN ×2 (02:56→08:27)
[2022-12-14] MEDS: Lorazepam 2 MG/ML VIAL SLOW IVP PRN (03:25)
[2022-12-14 04:08] LABS: #Monocytes 0.9 thou/uL (0.11-0.59); #Neutrophils 7.4 thou/uL (1.40-6.50); %Basophils 0.1 % (0.0-1.0); %Eosinophils 0.2 % (0.0-10.0); %Lymphocytes 10.4 % (21.0-51.0); %Monocytes 9.6 % (0.0-10.0); Hematocrit 24.5 % (36.0-47.0); Mean Corpuscular HGB CONC 32.7 g/dL (32.0-36.0); Mean Corpuscular Hemoglobin 31.4 pg (27.0-31.0); Platelet Count 224 10x3/uL (130-400); RBC Distribution Width 14.1 % (11.5-14.5); Red Blood Cell (RBC) Count 2.55 mill/uL (4.20-5.40); White Blood Cell (WBC) Count 9.3 10x3/uL (4.8-10.8)
[2022-12-14 04:22] LABS: Mean Corpuscular Volume 96.1 fl (78.0-98.0)
[2022-12-14 04:29] LABS: Anion Gap 18 mmol/L (10-20); BUN (Urea Nitrogen) 31 mg/dL (9.8-20.1); Calc. Creatinine Clearance 25 mL/min (70-130); Calcium 9.3 mg/dL (7.8-10.44); Carbon Dioxide 24 mmol/L (22-29); Chloride 97 mmol/L (98-107); Estimated GFR 12; Glucose 104 mg/dL (70-105); Potassium 3.5 mmol/L (3.5-5.1); Sodium 135 mmol/L (136-145)
[2022-12-14] MEDS: Ipratropium/Albuterol 3 ML NEB NEB SCH ×2 (06:25→15:08)
[2022-12-14 06:50] LABS: Actual Bicarbonate (HCO3a) 24.2 mEq/L (22-28); Base Excess (BEa) 2.5 mEq/L (-2.0 to +3.0); Calcium, Ionized (arterial) 1.09 mmol/L (1.12-1.30); Carboxyhemoglobin (COHb) 0.8 gm% (0.0-3.0); Hematocrit-ABG 26 % (36.0-47.0); Hemoglobin (Hb) 8.8 g/dL (12.0-16.0); O2 Tension (PaO2), arterial 125.6 mmHg (> 80.0); Potassium - ABG Lab 3.51 mmol/L (3.70-5.30); pH, Arterial 7.571 (7.35-7.45)
[2022-12-14 06:52] LABS: Puncture Site LBA
[2022-12-14] MEDS: Polyethylene Glycol 3350 17 GM Packet PER TUBE SCH (08:08)
[2022-12-14] MEDS: Senokot S 8.6-50 MG TAB PER TUBE SCH ×2 (08:08→19:06)
[2022-12-14] MEDS: Apixaban 2.5 MG TAB PO SCH ×2 (08:13→20:33)
[2022-12-14] MEDS: Famotidine/PF 20 mg/2ml Vial SLOW IVP SCH (08:14)
[2022-12-14] MEDS: Dexamethasone 10 MG/ML VIAL SLOW IVP SCH (08:14)
[2022-12-14] MEDS: cefTRIAXone\\ROCEPHIN 1 GM in Sodium Chloride 0.9% 100 ML IVPB SCH (10:42)
[2022-12-14] MEDS: Acetaminophen 325 MG TAB PO PRN ×2 (11:18→20:33)
[2022-12-14] MEDS ORDERED: Albuterol 200 PUFF (6.7GM INHALER) INH PRN (15:43)
[2022-12-14] MEDS ORDERED: HumaLOG 300 UNITS/3 ML VIAL SC PRN (19:50)
[2022-12-15] MEDS ORDERED: risperiDONE 1 MG TAB PO SCH (00:45)
[2022-12-15] MEDS: Melatonin 3 MG TAB PO PRN ×2 (00:47→21:12)
[2022-12-15] MEDS: Sevelamer Carbonate 800 MG TAB PO SCH ×3 (06:29→16:12)
[2022-12-15] MEDS: Acetaminophen 325 MG TAB PO PRN ×3 (06:29→21:12)
[2022-12-15 07:18] LABS: #Eosinphils 0.2 thou/uL (0.0-0.7); #Monocytes 1.1 thou/uL (0.11-0.59); #Neutrophils 5.3 thou/uL (1.40-6.50); %Basophils 0.2 % (0.0-1.0); %Lymphocytes 17.6 % (21.0-51.0); %Neutrophils 66.5 % (42.0-75.0); Hematocrit 23.5 % (36.0-47.0); Hemoglobin 7.2 g/dL (12.0-16.0); Mean Corpuscular HGB CONC 30.6 g/dL (32.0-36.0); Mean Corpuscular Hemoglobin 31.6 pg (27.0-31.0); Mean Corpuscular Volume 103.1 fl (78.0-98.0); Mean Platelet Volume 9.7 fL (7.4-10.4); Platelet Count 218 10x3/uL (130-400); RBC Distribution Width 14.9 % (11.5-14.5); Red Blood Cell (RBC) Count 2.28 mill/uL (4.20-5.40); White Blood Cell (WBC) Count 8.1 10x3/uL (4.8-10.8)
[2022-12-15 07:43] LABS: Vancomycin, Random 13.6 ug/mL (See Comment)
[2022-12-15 07:51] LABS: Anion Gap 16 mmol/L (10-20); BUN (Urea Nitrogen) 54 mg/dL (9.8-20.1); Calc. Creatinine Clearance 15 mL/min (70-130); Calcium 8.5 mg/dL (7.8-10.44); Carbon Dioxide 27 mmol/L (22-29); Chloride 93 mmol/L (98-107); Estimated GFR 6; Glucose 113 mg/dL (70-105); Potassium 3.5 mmol/L (3.5-5.1); Sodium 132 mmol/L (136-145)
[2022-12-15] MEDS ORDERED: Lorazepam 2 MG/ML VIAL SLOW IVP PRN (08:03)
[2022-12-15] MEDS ORDERED: Famotidine/PF 20 mg/2ml Vial SLOW IVP SCH (09:00)
[2022-12-15] MEDS: Senokot S 8.6-50 MG TAB PER TUBE SCH ×2 (09:15→21:17)
[2022-12-15] MEDS: Polyethylene Glycol 3350 17 GM Packet PER TUBE SCH (09:15)
[2022-12-15] MEDS: Apixaban 2.5 MG TAB PO SCH ×2 (09:18→21:21)
[2022-12-15] MEDS: Dexamethasone 10 MG/ML VIAL SLOW IVP SCH (09:19)
[2022-12-15] MEDS ORDERED: Heparin 10,000 UNITS/ 10 ML VIAL ONE (11:26)
[2022-12-15 12:39] LABS: pH, Arterial 7.126 (7.35-7.45)
[2022-12-15 12:40] LABS: CO2 Tension 104.8 mmHg (35.0-45.0); O2 Tension (PaO2), arterial 25.5 mmHg (> 80.0)
[2022-12-15] MEDS: cefTRIAXone\\ROCEPHIN 1 GM in Sodium Chloride 0.9% 100 ML IVPB SCH (12:41)
[2022-12-15] MEDS ORDERED: EPOETIN ALFA-EPBX (ESRD) 10,000 UNITS/ML VIAL SC SCH (14:00)
[2022-12-15] MEDS ORDERED: Epoetin (ESRD) 20,000 UNITS/ML MDV SC SCH (15:00)
[2022-12-15] MEDS: HumaLOG 300 UNITS/3 ML VIAL SC PRN (16:14)
[2022-12-15] MEDS ORDERED: VANCOMYCIN 1.25 GM/250 ML BAG 1.25 GM in Premix Bag 1 BAG IVPB SCH (17:00)
[2022-12-15] MEDS: risperiDONE 1 MG TAB PO SCH (21:12)
[2022-12-15] MEDS ORDERED: Albumin 25% 25 GM/100 ML BOT IVPB SCH (23:30)
[2022-12-15 23:37] LABS: Hematocrit 25.2 % (36.0-47.0); Hemoglobin 7.5 g/dL (12.0-16.0)
[2022-12-15] MEDS: Sodium Chloride 0.9% 500 ML IV SCH (23:42)
[2022-12-16] MEDS: Sodium Chloride 0.9% 500 ML IV SCH (00:01)
[2022-12-16] MEDS ORDERED: Sodium Chloride 0.9% 500 ML IV SCH ×2 (00:45→04:00)
[2022-12-16] MEDS: Calcium Carbonate 500 MG ChewTAB PO PRN (02:22)
[2022-12-16 04:49] LABS: #Eosinphils 0.1 thou/uL (0.0-0.7); #Monocytes 1.1 thou/uL (0.11-0.59); #Neutrophils 4.6 thou/uL (1.40-6.50); %Basophils 0.4 % (0.0-1.0); %Eosinophils 1.7 % (0.0-10.0); %Lymphocytes 20.4 % (21.0-51.0); %Monocytes 14.7 % (0.0-10.0); %Neutrophils 61.2 % (42.0-75.0); Hematocrit 26.1 % (36.0-47.0); Hemoglobin 7.7 g/dL (12.0-16.0); Mean Corpuscular HGB CONC 29.5 g/dL (32.0-36.0); Mean Corpuscular Hemoglobin 31.4 pg (27.0-31.0); Mean Platelet Volume 9.6 fL (7.4-10.4); Platelet Count 216 10x3/uL (130-400); RBC Distribution Width 14.9 % (11.5-14.5); Red Blood Cell (RBC) Count 2.45 mill/uL (4.20-5.40); White Blood Cell (WBC) Count 7.5 10x3/uL (4.8-10.8)
[2022-12-16 04:57] LABS: Mean Corpuscular Volume 106.5 fl (78.0-98.0)
[2022-12-16 05:16] LABS: Anion Gap 11 mmol/L (10-20); BUN (Urea Nitrogen) 26 mg/dL (9.8-20.1); Calc. Creatinine Clearance 21 mL/min (70-130); Carbon Dioxide 28 mmol/L (22-29); Chloride 99 mmol/L (98-107); Estimated GFR 9; Glucose 149 mg/dL (70-105); Potassium 3.3 mmol/L (3.5-5.1); Sodium 135 mmol/L (136-145)
[2022-12-16] MEDS: Dexamethasone 10 MG/ML VIAL SLOW IVP SCH (08:37)
[2022-12-16] MEDS: Apixaban 2.5 MG TAB PO SCH ×2 (08:37→20:43)
[2022-12-16] MEDS: Sevelamer Carbonate 800 MG TAB PO SCH ×3 (08:37→16:29)
[2022-12-16] MEDS: cefTRIAXone\\ROCEPHIN 1 GM in Sodium Chloride 0.9% 100 ML IVPB SCH (11:49)
[2022-12-16] MEDS: HumaLOG 300 UNITS/3 ML VIAL SC PRN (16:28)
[2022-12-16] MEDS: Senokot S 8.6-50 MG TAB PER TUBE SCH ×2 (16:31→20:43)
[2022-12-16] MEDS: Polyethylene Glycol 3350 17 GM Packet PER TUBE SCH (16:31)
[2022-12-16] MEDS: Melatonin 3 MG TAB PO PRN (20:43)
[2022-12-16] MEDS: risperiDONE 1 MG TAB PO SCH (20:43)
[2022-12-16] MEDS: Acetaminophen 325 MG TAB PO PRN (21:13)
[2022-12-17 04:03] LABS: #Eosinphils 0.1 thou/uL (0.0-0.7); #Monocytes 1.1 thou/uL (0.11-0.59); #Neutrophils 4.7 thou/uL (1.40-6.50); %Basophils 0.4 % (0.0-1.0); %Eosinophils 1.5 % (0.0-10.0); %Lymphocytes 21.4 % (21.0-51.0); %Monocytes 14.4 % (0.0-10.0); %Neutrophils 60.2 % (42.0-75.0); Hematocrit 23.2 % (36.0-47.0); Mean Corpuscular HGB CONC 30.2 g/dL (32.0-36.0); Mean Corpuscular Hemoglobin 31.5 pg (27.0-31.0); Mean Corpuscular Volume 104.5 fl (78.0-98.0); Platelet Count 224 10x3/uL (130-400); RBC Distribution Width 14.6 % (11.5-14.5); Red Blood Cell (RBC) Count 2.22 mill/uL (4.20-5.40); White Blood Cell (WBC) Count 7.8 10x3/uL (4.8-10.8)
[2022-12-17 04:29] LABS: Anion Gap 14 mmol/L (10-20); BUN (Urea Nitrogen) 42 mg/dL (9.8-20.1); Calc. Creatinine Clearance 15 mL/min (70-130); Calcium 8.4 mg/dL (7.8-10.44); Carbon Dioxide 26 mmol/L (22-29); Chloride 97 mmol/L (98-107); Estimated GFR 6; Glucose 85 mg/dL (70-105); Potassium 3.8 mmol/L (3.5-5.1); Sodium 133 mmol/L (136-145)
[2022-12-17 06:48] LABS: Hematocrit 24.5 % (36.0-47.0); Hemoglobin 7.3 g/dL (12.0-16.0); Mean Corpuscular HGB CONC 29.8 g/dL (32.0-36.0); Mean Corpuscular Hemoglobin 31.2 pg (27.0-31.0); Mean Corpuscular Volume 104.7 fl (78.0-98.0); Mean Platelet Volume 9.7 fL (7.4-10.4); Platelet Count 230 10x3/uL (130-400); RBC Distribution Width 14.7 % (11.5-14.5); Red Blood Cell (RBC) Count 2.34 mill/uL (4.20-5.40)
[2022-12-17] MEDS: Acetaminophen 325 MG TAB PO PRN ×2 (08:11→14:12)
[2022-12-17] MEDS: Senokot S 8.6-50 MG TAB PER TUBE SCH ×2 (08:12→22:23)
[2022-12-17] MEDS: Sevelamer Carbonate 800 MG TAB PO SCH ×3 (08:12→16:23)
[2022-12-17] MEDS: Apixaban 2.5 MG TAB PO SCH ×2 (08:12→22:23)
[2022-12-17] MEDS: Polyethylene Glycol 3350 17 GM Packet PER TUBE SCH (08:20)
[2022-12-17] MEDS ORDERED: Famotidine/PF 20 mg/2ml Vial SLOW IVP SCH (09:00)
[2022-12-17] MEDS: cefTRIAXone\\ROCEPHIN 1 GM in Sodium Chloride 0.9% 100 ML IVPB SCH (10:48)
[2022-12-17] MEDS: Calcium Carbonate 500 MG ChewTAB PO PRN (12:19)
[2022-12-17] MEDS: Carvedilol 3.125 MG TAB PO SCH (16:23)
[2022-12-17] MEDS: Benzocaine/Menthol 1 LOZ LOZ PO PRN ×2 (21:13→23:29)
[2022-12-17] MEDS: Melatonin 3 MG TAB PO PRN (22:23)
[2022-12-17] MEDS: risperiDONE 1 MG TAB PO SCH (22:23)
[2022-12-18] MEDS: Acetaminophen 325 MG TAB PO PRN ×3 (00:56→15:03)
[2022-12-18] MEDS: Carvedilol 3.125 MG TAB PO SCH ×2 (08:19→16:49)
[2022-12-18] MEDS: Polyethylene Glycol 3350 17 GM Packet PER TUBE SCH (08:19)
[2022-12-18] MEDS: Apixaban 2.5 MG TAB PO SCH (08:19)
[2022-12-18] MEDS: Senokot S 8.6-50 MG TAB PER TUBE SCH ×2 (08:19→20:41)
[2022-12-18] MEDS: Sevelamer Carbonate 800 MG TAB PO SCH ×4 (08:19→16:49)
[2022-12-18] MEDS ORDERED: Heparin 10,000 UNITS/ 10 ML VIAL ONE (08:33)
[2022-12-18] MEDS ORDERED: HYDROcodone/Acetaminophen 5/325 mg Tablet PO PRN (08:34)
[2022-12-18 09:50] LABS: #Eosinphils 0.1 thou/uL (0.0-0.7); #Monocytes 0.9 thou/uL (0.11-0.59); #Neutrophils 6.5 thou/uL (1.40-6.50); %Basophils 0.3 % (0.0-1.0); %Eosinophils 1.5 % (0.0-10.0); %Lymphocytes 12.5 % (21.0-51.0); %Monocytes 9.9 % (0.0-10.0); %Neutrophils 73.9 % (42.0-75.0); Hematocrit 30.3 % (36.0-47.0); Hemoglobin 9.5 g/dL (12.0-16.0); Mean Corpuscular HGB CONC 31.4 g/dL (32.0-36.0); Mean Platelet Volume 9.6 fL (7.4-10.4); Platelet Count 211 10x3/uL (130-400); RBC Distribution Width 17.3 % (11.5-14.5); Red Blood Cell (RBC) Count 2.97 mill/uL (4.20-5.40); White Blood Cell (WBC) Count 8.8 10x3/uL (4.8-10.8)
[2022-12-18 10:13] LABS: Anion Gap 17 mmol/L (10-20); BUN (Urea Nitrogen) 42 mg/dL (9.8-20.1); Calc. Creatinine Clearance 17 mL/min (70-130); Calcium 9.1 mg/dL (7.8-10.44); Carbon Dioxide 25 mmol/L (22-29); Chloride 99 mmol/L (98-107); Estimated GFR 7; Glucose 185 mg/dL (70-105); Potassium 3.7 mmol/L (3.5-5.1); Sodium 137 mmol/L (136-145)
[2022-12-18] MEDS: cefTRIAXone\\ROCEPHIN 1 GM in Sodium Chloride 0.9% 100 ML IVPB SCH (15:03)
[2022-12-18] MEDS: HYDROcodone/Acetaminophen 5/325 mg Tablet PO PRN ×2 (16:49→20:42)
[2022-12-18] MEDS: risperiDONE 1 MG TAB PO SCH (20:41)
[2022-12-19] MEDS: Sevelamer Carbonate 800 MG TAB PO SCH ×3 (08:27→17:10)
[2022-12-19] MEDS: Carvedilol 3.125 MG TAB PO SCH ×2 (08:27→17:10)
[2022-12-19] MEDS: Senokot S 8.6-50 MG TAB PER TUBE SCH ×2 (08:28→20:45)
[2022-12-19] MEDS: Polyethylene Glycol 3350 17 GM Packet PER TUBE SCH (08:28)
[2022-12-19] MEDS ORDERED: EPINEPHrine 1 MG/ML AMP ONE (11:27)
[2022-12-19] MEDS ORDERED: Heparin 10,000 UNITS/ 10 ML VIAL ONE (11:27)
[2022-12-19] MEDS ORDERED: Lidocaine 2% PF 5 ML VIAL ONE (11:27)
[2022-12-19] MEDS ORDERED: Bupivacaine PF 0.5% 30 ML VIAL ONE (11:27)
[2022-12-19] MEDS ORDERED: Ipratropium/Albuterol 3 ML NEB ONE (11:43)
[2022-12-19] MEDS ORDERED: fentaNYL 50 mcg/mL 1 mL Vial ONE (11:51)
[2022-12-19 12:16] LABS: #Eosinphils 0.2 thou/uL (0.0-0.7); #Monocytes 1.1 thou/uL (0.11-0.59); %Basophils 0.5 % (0.0-1.0); %Lymphocytes 15.2 % (21.0-51.0); %Monocytes 12.8 % (0.0-10.0); %Neutrophils 67.8 % (42.0-75.0); Hematocrit 34.5 % (36.0-47.0); Hemoglobin 10.4 g/dL (12.0-16.0); Mean Corpuscular HGB CONC 30.1 g/dL (32.0-36.0); Mean Corpuscular Hemoglobin 31.7 pg (27.0-31.0); Mean Corpuscular Volume 105.2 fl (78.0-98.0); Platelet Count 225 10x3/uL (130-400); RBC Distribution Width 17.9 % (11.5-14.5); Red Blood Cell (RBC) Count 3.28 mill/uL (4.20-5.40); White Blood Cell (WBC) Count 8.8 10x3/uL (4.8-10.8)
[2022-12-19] MEDS ORDERED: Sodium Chloride 0.9% 100 ML ONE (12:24)
[2022-12-19] MEDS ORDERED: cefTRIAXone (ROCEPHIN) 1 GM VIAL ONE (12:24)
[2022-12-19] MEDS ORDERED: ePHEDrine Sulfate 50 MG/10 ML VIAL ONE (12:32)
[2022-12-19] MEDS ORDERED: Rocuronium Bromide 10 MG/ML (10ML VIAL) ONE (12:32)
[2022-12-19] MEDS ORDERED: PROPOFOL 200 MG/20 ML VIAL ONE (12:32)
[2022-12-19] MEDS ORDERED: Succinylcholine 200 MG/10 ml SYRINGE FS ONE (12:32)
[2022-12-19] MEDS ORDERED: PHENYLEPHRINE-NS 100 MCG/ML 10 ML SYRINGE ONE (12:32)
[2022-12-19] MEDS ORDERED: Lidocaine 1% PF 5 ML VIAL ONE (12:32)
[2022-12-19] MEDS: cefTRIAXone\\ROCEPHIN 1 GM in Sodium Chloride 0.9% 100 ML IVPB SCH (12:34)
[2022-12-19 12:39] LABS: Anion Gap 17 mmol/L (10-20); BUN (Urea Nitrogen) 36 mg/dL (9.8-20.1); Calc. Creatinine Clearance 17 mL/min (70-130); Calcium 9.9 mg/dL (7.8-10.44); Carbon Dioxide 21 mmol/L (22-29); Chloride 103 mmol/L (98-107); Estimated GFR 7; Glucose 117 mg/dL (70-105); Potassium 4.1 mmol/L (3.5-5.1); Sodium 137 mmol/L (136-145)
[2022-12-19] MEDS ORDERED: SUGAMMADEX SODIUM 200 MG/2 ML VIAL ONE (14:29)
[2022-12-19] MEDS ORDERED: Promethazine HCl 25 MG/ML VIAL IM PRN (15:03)
[2022-12-19] MEDS ORDERED: Ondansetron HCl/PF 4 MG/2 ML Vial IVP PRN (15:03)
[2022-12-19] MEDS ORDERED: HYDROmorphone 2 MG/ML VIAL SLOW IVP PRN (15:03)
[2022-12-19] MEDS ORDERED: predniSONE 50 MG TAB PO SCH (20:00)
[2022-12-19] MEDS: Apixaban 2.5 MG TAB PO SCH (20:45)
[2022-12-19] MEDS: HYDROcodone/Acetaminophen 5/325 mg Tablet PO PRN (20:45)
[2022-12-19] MEDS: risperiDONE 1 MG TAB PO SCH (20:46)
[2022-12-20] MEDS ORDERED: predniSONE 50 MG TAB PO SCH ×2 (02:00→08:00)
[2022-12-20] MEDS ORDERED: diphenhydrAMINE 25 MG CAP PO SCH (08:00)
[2022-12-20] MEDS ORDERED: Heparin 10,000 UNITS/ 10 ML VIAL ONE (09:00)
[2022-12-20] MEDS: Sevelamer Carbonate 800 MG TAB PO SCH ×2 (10:01→17:58)
[2022-12-20] MEDS: Apixaban 2.5 MG TAB PO SCH (10:01)
[2022-12-20] MEDS: Carvedilol 3.125 MG TAB PO SCH ×2 (10:02→17:58)
[2022-12-20] MEDS: Senokot S 8.6-50 MG TAB PER TUBE SCH (10:02)
[2022-12-20] MEDS: Polyethylene Glycol 3350 17 GM Packet PER TUBE SCH (10:05)
[2022-12-20 12:35] VITALS: BMI 43.6
[2022-12-20 16:57] VITALS: BP 144/71; TEMP 98.6
[2022-12-20] MEDS: Acetaminophen 325 MG TAB PO PRN (18:02)
== END 2022-12-20 19:23 | disposition home or self-care (01) | DRG 208 ==
LOC: IMCU/EMU 22:19 → CCU 12-13 03:55 → 2NO 12-17 16:09
PROVIDERS: ADMIT Student in an Organized Health Care Education/Training Program; ATTEND Emergency Medicine
PROC: 5A1945Z Respiratory Ventilation, 24-96 Consecutive Hours (ICD-10-PCS; principal; 2022-12-13)
PROC: 3E033XZ Introduction of Vasopressor into Peripheral Vein, Percutaneous Approach (ICD-10-PCS; 2022-12-19)
PROC: 3E03329 Introduction of Other Anti-infective into Peripheral Vein, Percutaneous Approach (ICD-10-PCS; 2022-12-19)
DX: J96.22 Acute and chronic respiratory failure with hypercapnia (principal); G93.41 Metabolic encephalopathy; N18.6 End stage renal disease; U07.1 COVID-19; J12.82 Pneumonia due to coronavirus disease 2019; I12.0 Hypertensive chronic kidney disease with stage 5 chronic kidney disease or end stage renal disease; E87.29 Other acidosis; J44.1 Chronic obstructive pulmonary disease with (acute) exacerbation; J81.1 Chronic pulmonary edema; G47.33 Obstructive sleep apnea (adult) (pediatric); E87.5 Hyperkalemia; E11.22 Type 2 diabetes mellitus with diabetic chronic kidney disease; E87.70 Fluid overload, unspecified; L98.8 Other specified disorders of the skin and subcutaneous tissue; E78.5 Hyperlipidemia, unspecified; J44.9 Chronic obstructive pulmonary disease, unspecified; D63.1 Anemia in chronic kidney disease; F25.9 Schizoaffective disorder, unspecified; Z90.49 Acquired absence of other specified parts of digestive tract; Z98.51 Tubal ligation status; Z98.890 Other specified postprocedural states; Z79.899 Other long term (current) drug therapy; Z86.718 Personal history of other venous thrombosis and embolism
CPT/HCPCS: 36415; 36416; 36430; 36600; 71045; 71250; 74177; 80048; 80202; 82805; 84145; 85025; 86140; 86850; 86900; 86901; 87040; 87070; 87077; 87186; 87205; 90935; 94002; 94003; 94640; 94660; 97139; C1752; G0257; J0171; J0696; J1100; J1644; J1815; J2001; J2060; J2704; J3010; J3370; J3490; J7030; J7512; J7620; P9016; P9047; Q4081; S0020; S0028

== ENCOUNTER 2023-02-15 14:08 | Inpatient (IN) | payer OTHER ==
[2023-02-15 14:53] LABS: #Monocytes 0.8 thou/uL (0.11-0.59); #Neutrophils 2.8 thou/uL (1.40-6.50); %Basophils 0.4 % (0.0-1.0); %Eosinophils 0.6 % (0.0-10.0); %Lymphocytes 26.7 % (21.0-51.0); %Monocytes 15.3 % (0.0-10.0); %Neutrophils 56.6 % (42.0-75.0); Hematocrit 35.2 % (36.0-47.0); Hemoglobin 10.6 g/dL (12.0-16.0); Mean Corpuscular HGB CONC 30.1 g/dL (32.0-36.0); Mean Corpuscular Hemoglobin 31.7 pg (27.0-31.0); Mean Corpuscular Volume 105.4 fl (78.0-98.0); Mean Platelet Volume 9.8 fL (7.4-10.4); Platelet Count 165 10x3/uL (130-400); RBC Distribution Width 14.6 % (11.5-14.5); Red Blood Cell (RBC) Count 3.34 mill/uL (4.20-5.40)
[2023-02-15 15:13] LABS: Troponin I 0.058 ng/mL (< 0.028)
[2023-02-15 15:15] LABS: ALT (SGPT) 13 U/L (8-55); AST (SGOT) 14 U/L (5-34); Albumin 3.8 g/dL (3.5-5.0); Alkaline Phosphatase 154 U/L (40-110); Anion Gap 17 mmol/L (10-20); BUN (Urea Nitrogen) 43 mg/dL (9.8-20.1); Bilirubin, Total 0.4 mg/dL (0.2-1.2); Calc. Creatinine Clearance 0 mL/min (70-130); Calcium 9.5 mg/dL (7.8-10.44); Carbon Dioxide 29 mmol/L (22-29); Chloride 95 mmol/L (98-107); Estimated GFR 5; Globulin 2.8 g/dL (2.4-3.5); Glucose 115 mg/dL (70-105); Magnesium 2.3 mg/dL (1.6-2.6); Potassium 4.1 mmol/L (3.5-5.1); Protein, Total 6.6 g/dL (6.0-8.3); Sodium 137 mmol/L (136-145)
[2023-02-15] MEDS ORDERED: Ondansetron PF 4 MG/2 ML Vial IVP PRN (16:30)
[2023-02-15] MEDS ORDERED: Calcium Carbonate 500 MG ChewTAB PO PRN (16:30)
[2023-02-15] MEDS ORDERED: Morphine 2 MG/ML VIAL ONE (16:46)
[2023-02-15] MEDS ORDERED: diphenhydrAMINE 50 MG/ML VIAL ONE (16:46)
[2023-02-15] MEDS ORDERED: cefTRIAXone (ROCEPHIN) 1 GM VIAL ONE (16:46)
[2023-02-15] MEDS ORDERED: Aspirin Chewable 81 MG TAB ONE (16:46)
[2023-02-15] MEDS ORDERED: methylPREDNISolone Sod Succ 40 MG VIAL ONE (16:46)
[2023-02-15] MEDS ORDERED: Famotidine/PF 20 mg/2ml Vial ONE (16:46)
[2023-02-15] MEDS ORDERED: LevoFLOXacin 750 MG TAB PO SCH (18:00)
[2023-02-15] MEDS: risperiDONE 1 MG TAB PO SCH (19:53)
[2023-02-15] MEDS: guaiFENesin ER 600 MG TAB PO SCH (19:54)
[2023-02-15] MEDS: Apixaban 2.5 MG TAB PO SCH (19:54)
[2023-02-15 19:58] LABS: Troponin I 0.036 ng/mL (< 0.028)
[2023-02-15] MEDS ORDERED: Doxycycline 100 MG CAP PO SCH (21:00)
[2023-02-15] MEDS: Benzonatate 100 MG CAP PO PRN (23:33)
[2023-02-16 04:34] LABS: #Monocytes 0.2 thou/uL (0.11-0.59); #Neutrophils 4.4 thou/uL (1.40-6.50); %Basophils 0.2 % (0.0-1.0); %Lymphocytes 10.1 % (21.0-51.0); %Monocytes 4.2 % (0.0-10.0); %Neutrophils 84.7 % (42.0-75.0); Hematocrit 34.1 % (36.0-47.0); Mean Corpuscular HGB CONC 29.3 g/dL (32.0-36.0); Mean Corpuscular Hemoglobin 31.3 pg (27.0-31.0); Mean Corpuscular Volume 106.6 fl (78.0-98.0); Mean Platelet Volume 10.2 fL (7.4-10.4); Platelet Count 154 10x3/uL (130-400); RBC Distribution Width 14.4 % (11.5-14.5); White Blood Cell (WBC) Count 5.2 10x3/uL (4.8-10.8)
[2023-02-16 05:15] LABS: ALT (SGPT) 12 U/L (8-55); AST (SGOT) 15 U/L (5-34); Albumin 3.8 g/dL (3.5-5.0); Alkaline Phosphatase 157 U/L (40-110); Anion Gap 19 mmol/L (10-20); BUN (Urea Nitrogen) 52 mg/dL (9.8-20.1); Bilirubin, Total 0.4 mg/dL (0.2-1.2); Calc. Creatinine Clearance 12 mL/min (70-130); Calcium 9.3 mg/dL (7.8-10.44); Carbon Dioxide 26 mmol/L (22-29); Chloride 94 mmol/L (98-107); Estimated GFR 5; Globulin 2.9 g/dL (2.4-3.5); Glucose 237 mg/dL (70-105); Potassium 5.1 mmol/L (3.5-5.1); Protein, Total 6.7 g/dL (6.0-8.3); Sodium 134 mmol/L (136-145)
[2023-02-16 10:38] LABS: Hep B Core Total Ab Non-Reactive (NonReactive); Hep B Core Total Index 0.16 S/CO (0-0.79)
[2023-02-16 10:39] LABS: HBSAB Concentration Less than 8.00 mIU/mL; HBSAg Index 0.25 S/CO (0-0.99); Hep B Surf AB Non-Reactive (NonReactive); Hep B Surf Ag Non-Reactive S/CO (NonReactive)
[2023-02-16 10:40] LABS: Hep C IgG Ab Non-Reactive S/CO (NonReactive); Hep C Index 0.11 S/CO (0-0.79)
[2023-02-16] MEDS ORDERED: Dextrose 50% Abboject 50 ML SYRINGE SLOW IVP PRN (11:03)
[2023-02-16] MEDS ORDERED: Glucagon 1 MG/ML KIT IM PRN (11:03)
[2023-02-16] MEDS ORDERED: Dextrose 5% in Water 1,000 ML IV PRN (11:03)
[2023-02-16] MEDS ORDERED: hydrALAZINE 20 MG/ML VIAL SLOW IVP PRN (11:10)
[2023-02-16] MEDS: Folic Acid/Vit B Comp W-C PO SCH (13:17)
[2023-02-16] MEDS: Sevelamer Carbonate 800 MG TAB PO SCH ×4 (13:17→16:19)
[2023-02-16] MEDS: Amlodipine 5 MG TAB PO SCH (13:17)
[2023-02-16] MEDS: Carvedilol 3.125 MG TAB PO SCH ×3 (13:17→16:19)
[2023-02-16] MEDS: guaiFENesin ER 600 MG TAB PO SCH ×2 (13:17→20:20)
[2023-02-16] MEDS: Cinacalcet HCl 30 MG TAB PO SCH (13:17)
[2023-02-16] MEDS: Apixaban 2.5 MG TAB PO SCH ×2 (13:18→20:20)
[2023-02-16] MEDS: LevoFLOXacin 250 MG TAB PO SCH (16:19)
[2023-02-16] MEDS: risperiDONE 1 MG TAB PO SCH (20:20)
[2023-02-16] MEDS: Benzonatate 100 MG CAP PO PRN (21:56)
[2023-02-17 04:50] LABS: #Monocytes 0.6 thou/uL (0.11-0.59); #Neutrophils 3.1 thou/uL (1.40-6.50); %Basophils 0.6 % (0.0-1.0); %Eosinophils 0.6 % (0.0-10.0); %Lymphocytes 21.2 % (21.0-51.0); %Neutrophils 63.8 % (42.0-75.0); Hematocrit 33.6 % (36.0-47.0); Mean Corpuscular HGB CONC 29.8 g/dL (32.0-36.0); Mean Corpuscular Hemoglobin 31.2 pg (27.0-31.0); Mean Corpuscular Volume 104.7 fl (78.0-98.0); Mean Platelet Volume 10.2 fL (7.4-10.4); Platelet Count 170 10x3/uL (130-400); RBC Distribution Width 14.5 % (11.5-14.5); Red Blood Cell (RBC) Count 3.21 mill/uL (4.20-5.40); White Blood Cell (WBC) Count 4.9 10x3/uL (4.8-10.8)
[2023-02-17 05:09] LABS: Phosphorus 4.8 mg/dL (2.3-4.7)
[2023-02-17 05:13] LABS: ALT (SGPT) 13 U/L (8-55); AST (SGOT) 14 U/L (5-34); Albumin 3.5 g/dL (3.5-5.0); Alkaline Phosphatase 145 U/L (40-110); Anion Gap 14 mmol/L (10-20); BUN (Urea Nitrogen) 30 mg/dL (9.8-20.1); Bilirubin, Total 0.4 mg/dL (0.2-1.2); Calc. Creatinine Clearance 16 mL/min (70-130); Calcium 8.9 mg/dL (7.8-10.44); Carbon Dioxide 30 mmol/L (22-29); Chloride 96 mmol/L (98-107); Estimated GFR 7; Globulin 2.3 g/dL (2.4-3.5); Glucose 84 mg/dL (70-105); Magnesium 2.2 mg/dL (1.6-2.6); Potassium 4.4 mmol/L (3.5-5.1); Protein, Total 5.8 g/dL (6.0-8.3); Sodium 136 mmol/L (136-145)
[2023-02-17] MEDS: Folic Acid/Vit B Comp W-C PO SCH (09:34)
[2023-02-17] MEDS: guaiFENesin ER 600 MG TAB PO SCH ×2 (09:34→21:16)
[2023-02-17] MEDS: Amlodipine 5 MG TAB PO SCH (09:34)
[2023-02-17] MEDS: Sevelamer Carbonate 800 MG TAB PO SCH ×3 (09:34→16:11)
[2023-02-17] MEDS: Cinacalcet HCl 30 MG TAB PO SCH (09:34)
[2023-02-17] MEDS: Apixaban 2.5 MG TAB PO SCH ×2 (09:34→21:25)
[2023-02-17] MEDS: Carvedilol 3.125 MG TAB PO SCH ×2 (09:35→16:11)
[2023-02-17] MEDS ORDERED: Heparin 10,000 UNITS/ 10 ML VIAL ONE (11:03)
[2023-02-17] MEDS: LevoFLOXacin 250 MG TAB PO SCH (16:11)
[2023-02-17] MEDS: risperiDONE 1 MG TAB PO SCH (21:16)
[2023-02-17] MEDS: traMADol HCl 50 MG TAB PO PRN (23:16)
[2023-02-18] MEDS: Folic Acid/Vit B Comp W-C PO SCH (09:02)
[2023-02-18] MEDS: Apixaban 2.5 MG TAB PO SCH ×2 (09:02→20:28)
[2023-02-18] MEDS: Cinacalcet HCl 30 MG TAB PO SCH (09:02)
[2023-02-18] MEDS: guaiFENesin ER 600 MG TAB PO SCH ×2 (09:02→20:28)
[2023-02-18] MEDS: Sevelamer Carbonate 800 MG TAB PO SCH ×3 (09:02→16:54)
[2023-02-18] MEDS: Amlodipine 5 MG TAB PO SCH (09:03)
[2023-02-18] MEDS: Carvedilol 3.125 MG TAB PO SCH ×2 (09:03→16:54)
[2023-02-18 10:12] LABS: ALT (SGPT) 13 U/L (8-55); AST (SGOT) 13 U/L (5-34); Alkaline Phosphatase 171 U/L (40-110); Anion Gap 20 mmol/L (10-20); BUN (Urea Nitrogen) 55 mg/dL (9.8-20.1); Bilirubin, Total 0.5 mg/dL (0.2-1.2); Calc. Creatinine Clearance 11 mL/min (70-130); Carbon Dioxide 26 mmol/L (22-29); Chloride 93 mmol/L (98-107); Estimated GFR 4; Globulin 3.2 g/dL (2.4-3.5); Glucose 102 mg/dL (70-105); Phosphorus 7.5 mg/dL (2.3-4.7); Protein, Total 7.2 g/dL (6.0-8.3); Sodium 133 mmol/L (136-145)
[2023-02-18] MEDS ORDERED: Insulin Regular 300 UNITS/3 ML VIAL IVP SCH (11:00)
[2023-02-18] MEDS ORDERED: LOKELMA 10 GM PACKET PO SCH (11:00)
[2023-02-18 12:45] LABS: Anion Gap 18 mmol/L (10-20); BUN (Urea Nitrogen) 51 mg/dL (9.8-20.1); Calc. Creatinine Clearance 12 mL/min (70-130); Carbon Dioxide 23 mmol/L (22-29); Chloride 97 mmol/L (98-107); Estimated GFR 5; Glucose 97 mg/dL (70-105); Potassium 4.7 mmol/L (3.5-5.1); Sodium 133 mmol/L (136-145)
[2023-02-18] MEDS: LevoFLOXacin 250 MG TAB PO SCH (16:54)
[2023-02-18] MEDS: risperiDONE 1 MG TAB PO SCH (20:28)
[2023-02-18] MEDS: Benzonatate 100 MG CAP PO PRN (20:29)
[2023-02-19] MEDS: traMADol HCl 50 MG TAB PO PRN (00:31)
[2023-02-19] MEDS ORDERED: Heparin 10,000 UNITS/ 10 ML VIAL ONE (08:24)
[2023-02-19] MEDS: Apixaban 2.5 MG TAB PO SCH ×2 (08:26→22:12)
[2023-02-19] MEDS: Cinacalcet HCl 30 MG TAB PO SCH (08:26)
[2023-02-19] MEDS: Carvedilol 3.125 MG TAB PO SCH ×2 (08:26→18:27)
[2023-02-19] MEDS: Amlodipine 5 MG TAB PO SCH (08:26)
[2023-02-19] MEDS: guaiFENesin ER 600 MG TAB PO SCH ×2 (08:26→22:12)
[2023-02-19] MEDS: Folic Acid/Vit B Comp W-C PO SCH (08:26)
[2023-02-19] MEDS: Sevelamer Carbonate 800 MG TAB PO SCH ×3 (08:27→22:15)
[2023-02-19] MEDS ORDERED: traMADol HCl 50 MG TAB PO PRN (10:10)
[2023-02-19 10:54] LABS: ALT (SGPT) 11 U/L (8-55); AST (SGOT) 11 U/L (5-34); Albumin 4.2 g/dL (3.5-5.0); Alkaline Phosphatase 176 U/L (40-110); Anion Gap 17 mmol/L (10-20); BUN (Urea Nitrogen) 54 mg/dL (9.8-20.1); Bilirubin, Total 0.4 mg/dL (0.2-1.2); Calc. Creatinine Clearance 11 mL/min (70-130); Calcium 9.2 mg/dL (7.8-10.44); Carbon Dioxide 28 mmol/L (22-29); Chloride 92 mmol/L (98-107); Estimated GFR 5; Globulin 3.2 g/dL (2.4-3.5); Glucose 128 mg/dL (70-105); Phosphorus 6.3 mg/dL (2.3-4.7); Potassium 5.1 mmol/L (3.5-5.1); Protein, Total 7.4 g/dL (6.0-8.3); Sodium 132 mmol/L (136-145)
[2023-02-19 12:20] LABS: Troponin I 0.035 ng/mL (< 0.028)
[2023-02-19] MEDS: Acetaminophen 325 MG TAB PO PRN (18:51)
[2023-02-19] MEDS: LevoFLOXacin 250 MG TAB PO SCH (18:51)
[2023-02-19 18:52] LABS: Actual Bicarbonate (HCO3a) 29.2 mEq/L (22-28); Base Excess (BEa) -1.7 mEq/L (-2.0 to +3.0); Calcium, Ionized (arterial) 1.19 mmol/L (1.12-1.30); Carboxyhemoglobin (COHb) 1.2 gm% (0.0-3.0); Hematocrit-ABG 36 % (36.0-47.0); Hemoglobin (Hb) 12.2 g/dL (12.0-16.0); O2 Tension (PaO2), arterial 88.9 mmHg (> 80.0); Potassium - ABG Lab 4.63 mmol/L (3.70-5.30)
[2023-02-19 18:54] LABS: pH, Arterial 7.142 (7.35-7.45)
[2023-02-19] MEDS: risperiDONE 1 MG TAB PO SCH (22:12)
[2023-02-19 22:15] LABS: #Eosinphils 0.1 thou/uL (0.0-0.7); #Neutrophils 4.6 thou/uL (1.40-6.50); %Basophils 0.4 % (0.0-1.0); %Eosinophils 1.6 % (0.0-10.0); %Lymphocytes 15.2 % (21.0-51.0); %Monocytes 14.7 % (0.0-10.0); %Neutrophils 67.2 % (42.0-75.0); Hematocrit 37.6 % (36.0-47.0); Hemoglobin 11.1 g/dL (12.0-16.0); Mean Corpuscular HGB CONC 29.5 g/dL (32.0-36.0); Mean Corpuscular Hemoglobin 31.7 pg (27.0-31.0); Mean Corpuscular Volume 107.4 fl (78.0-98.0); Mean Platelet Volume 9.8 fL (7.4-10.4); Platelet Count 203 10x3/uL (130-400); RBC Distribution Width 14.6 % (11.5-14.5); White Blood Cell (WBC) Count 6.9 10x3/uL (4.8-10.8)
[2023-02-19 22:41] LABS: Lactic Acid 1.2 mmol/L (0.5-2.2)
[2023-02-19 22:47] LABS: ALT (SGPT) 8 U/L (8-55); AST (SGOT) 11 U/L (5-34); Albumin 3.9 g/dL (3.5-5.0); Alkaline Phosphatase 165 U/L (40-110); Anion Gap 16 mmol/L (10-20); BUN (Urea Nitrogen) 37 mg/dL (9.8-20.1); Bilirubin, Total 0.4 mg/dL (0.2-1.2); Calc. Creatinine Clearance 13 mL/min (70-130); Calcium 9.2 mg/dL (7.8-10.44); Carbon Dioxide 28 mmol/L (22-29); Chloride 92 mmol/L (98-107); Estimated GFR 5; Globulin 3.3 g/dL (2.4-3.5); Glucose 93 mg/dL (70-105); Potassium 4.7 mmol/L (3.5-5.1); Protein, Total 7.2 g/dL (6.0-8.3); Sodium 131 mmol/L (136-145)
[2023-02-19] MEDS ORDERED: Ipratropium/Albuterol 3 ML NEB NEB PRN (23:07)
[2023-02-20 01:24] LABS: Actual Bicarbonate (HCO3a) 31.3 mEq/L (22-28); Base Excess (BEa) 2.1 mEq/L (-2.0 to +3.0); Calcium, Ionized (arterial) 1.21 mmol/L (1.12-1.30); Carboxyhemoglobin (COHb) 1.8 gm% (0.0-3.0); Hematocrit-ABG 34 % (36.0-47.0); Hemoglobin (Hb) 11.5 g/dL (12.0-16.0); O2 Tension (PaO2), arterial 82.2 mmHg (> 80.0); Potassium - ABG Lab 4.66 mmol/L (3.70-5.30); pH, Arterial 7.235 (7.35-7.45)
[2023-02-20 01:28] LABS: Puncture Site LRA
[2023-02-20] MEDS: Ipratropium/Albuterol 3 ML NEB NEB SCH ×6 (01:54→22:03)
[2023-02-20] MEDS ORDERED: methylPREDNISolone Sod Succ 40 MG VIAL IVP SCH ×2 (02:00→06:00)
[2023-02-20 05:36] LABS: #Monocytes 0.2 thou/uL (0.11-0.59); #Neutrophils 6.5 thou/uL (1.40-6.50); %Basophils 0.1 % (0.0-1.0); %Eosinophils 0.3 % (0.0-10.0); %Lymphocytes 6.9 % (21.0-51.0); %Monocytes 3.2 % (0.0-10.0); %Neutrophils 88.9 % (42.0-75.0); Hematocrit 38.3 % (36.0-47.0); Hemoglobin 11.4 g/dL (12.0-16.0); Mean Corpuscular HGB CONC 29.8 g/dL (32.0-36.0); Mean Corpuscular Hemoglobin 31.5 pg (27.0-31.0); Mean Corpuscular Volume 105.8 fl (78.0-98.0); Mean Platelet Volume 9.8 fL (7.4-10.4); Platelet Count 180 10x3/uL (130-400); RBC Distribution Width 14.6 % (11.5-14.5); Red Blood Cell (RBC) Count 3.62 mill/uL (4.20-5.40); White Blood Cell (WBC) Count 7.3 10x3/uL (4.8-10.8)
[2023-02-20 06:02] LABS: ALT (SGPT) 8 U/L (8-55); AST (SGOT) 9 U/L (5-34); Albumin 3.9 g/dL (3.5-5.0); Alkaline Phosphatase 150 U/L (40-110); Anion Gap 17 mmol/L (10-20); BUN (Urea Nitrogen) 43 mg/dL (9.8-20.1); Bilirubin, Total 0.4 mg/dL (0.2-1.2); Calc. Creatinine Clearance 11 mL/min (70-130); Calcium 9.5 mg/dL (7.8-10.44); Carbon Dioxide 24 mmol/L (22-29); Chloride 94 mmol/L (98-107); Estimated GFR 5; Glucose 103 mg/dL (70-105); Magnesium 2.4 mg/dL (1.6-2.6); Potassium 5.1 mmol/L (3.5-5.1); Protein, Total 6.9 g/dL (6.0-8.3); Sodium 130 mmol/L (136-145)
[2023-02-20 08:01] LABS: Actual Bicarbonate (HCO3a) 27.3 mEq/L (22-28); Base Excess (BEa) -1.5 mEq/L (-2.0 to +3.0); CO2 Tension 67.4 mmHg (35.0-45.0); Calcium, Ionized (arterial) 1.24 mmol/L (1.12-1.30); Carboxyhemoglobin (COHb) 1.1 gm% (0.0-3.0); Hematocrit-ABG 36 % (36.0-47.0); Hemoglobin (Hb) 12.1 g/dL (12.0-16.0); O2 Tension (PaO2), arterial 80.7 mmHg (> 80.0); Potassium - ABG Lab 5.65 mmol/L (3.70-5.30); pH, Arterial 7.226 (7.35-7.45)
[2023-02-20 08:02] LABS: Puncture Site LRA
[2023-02-20] MEDS ORDERED: Heparin 10,000 UNITS/ 10 ML VIAL ONE (09:22)
[2023-02-20 09:30] LABS: CO2 Tension 87.3 mmHg (35.0-45.0)
[2023-02-20] MEDS: Amlodipine 5 MG TAB PO SCH (10:15)
[2023-02-20] MEDS: Sevelamer Carbonate 800 MG TAB PO SCH ×3 (10:17→17:25)
[2023-02-20] MEDS: Carvedilol 3.125 MG TAB PO SCH ×2 (10:18→17:25)
[2023-02-20] MEDS: Folic Acid/Vit B Comp W-C PO SCH (10:18)
[2023-02-20] MEDS: Cinacalcet HCl 30 MG TAB PO SCH (10:19)
[2023-02-20] MEDS: Apixaban 2.5 MG TAB PO SCH ×2 (10:19→21:35)
[2023-02-20] MEDS: guaiFENesin ER 600 MG TAB PO SCH ×2 (10:19→21:34)
[2023-02-20] MEDS: Famotidine/PF 20 mg/2ml Vial SLOW IVP SCH (10:20)
[2023-02-20] MEDS: LevoFLOXacin 250 MG TAB PO SCH (17:25)
[2023-02-20] MEDS: risperiDONE 1 MG TAB PO SCH (21:51)
[2023-02-20] MEDS: methylPREDNISolone Sod Succ 40 MG VIAL IVP SCH (21:52)
[2023-02-21] MEDS: Ipratropium/Albuterol 3 ML NEB NEB SCH ×6 (00:40→22:10)
[2023-02-21 04:20] LABS: #Monocytes 0.4 thou/uL (0.11-0.59); #Neutrophils 4.8 thou/uL (1.40-6.50); %Basophils 0.2 % (0.0-1.0); %Monocytes 6.7 % (0.0-10.0); %Neutrophils 86.4 % (42.0-75.0); Hemoglobin 10.1 g/dL (12.0-16.0); Mean Corpuscular HGB CONC 30.6 g/dL (32.0-36.0); Mean Corpuscular Hemoglobin 31.3 pg (27.0-31.0); Mean Platelet Volume 9.8 fL (7.4-10.4); Platelet Count 180 10x3/uL (130-400); RBC Distribution Width 14.5 % (11.5-14.5); Red Blood Cell (RBC) Count 3.23 mill/uL (4.20-5.40); White Blood Cell (WBC) Count 5.5 10x3/uL (4.8-10.8)
[2023-02-21 04:33] LABS: Mean Corpuscular Volume 102.2 fl (78.0-98.0)
[2023-02-21] MEDS ORDERED: hydrALAZINE 20 MG/ML VIAL SLOW IVP PRN (05:00)
[2023-02-21 07:02] LABS: ALT (SGPT) Less than 7 U/L (8-55); AST (SGOT) 8 U/L (5-34); Albumin 3.5 g/dL (3.5-5.0); Alkaline Phosphatase 147 U/L (40-110); Anion Gap 16 mmol/L (10-20); BUN (Urea Nitrogen) 35 mg/dL (9.8-20.1); Bilirubin, Total 0.3 mg/dL (0.2-1.2); Calc. Creatinine Clearance 15 mL/min (70-130); Calcium 9.1 mg/dL (7.8-10.44); Carbon Dioxide 26 mmol/L (22-29); Chloride 98 mmol/L (98-107); Estimated GFR 7; Globulin 2.7 g/dL (2.4-3.5); Glucose 231 mg/dL (70-105); Phosphorus 4.5 mg/dL (2.3-4.7); Potassium 4.6 mmol/L (3.5-5.1); Protein, Total 6.2 g/dL (6.0-8.3); Sodium 135 mmol/L (136-145)
[2023-02-21] MEDS ORDERED: predniSONE 50 MG TAB PO SCH ×3 (08:00→20:00)
[2023-02-21] MEDS ORDERED: Heparin 10,000 UNITS/ 10 ML VIAL ONE (08:56)
[2023-02-21] MEDS ORDERED: Amlodipine 5 MG TAB PO SCH (09:00)
[2023-02-21] MEDS: Sevelamer Carbonate 800 MG TAB PO SCH ×2 (12:06→17:17)
[2023-02-21] MEDS: Amlodipine 5 MG TAB PO SCH (12:06)
[2023-02-21] MEDS: Carvedilol 3.125 MG TAB PO SCH ×2 (12:06→17:17)
[2023-02-21] MEDS: Apixaban 2.5 MG TAB PO SCH ×2 (12:07→20:20)
[2023-02-21] MEDS: guaiFENesin ER 600 MG TAB PO SCH ×2 (12:07→20:20)
[2023-02-21] MEDS: Famotidine/PF 20 mg/2ml Vial SLOW IVP SCH (12:07)
[2023-02-21] MEDS: Folic Acid/Vit B Comp W-C PO SCH (12:07)
[2023-02-21] MEDS: Cinacalcet HCl 30 MG TAB PO SCH (12:07)
[2023-02-21] MEDS: methylPREDNISolone Sod Succ 40 MG VIAL IVP SCH (12:08)
[2023-02-21] MEDS: LevoFLOXacin 250 MG TAB PO SCH (17:17)
[2023-02-21] MEDS ORDERED: diphenhydrAMINE 50 MG CAP PO SCH (20:00)
[2023-02-21] MEDS: risperiDONE 1 MG TAB PO SCH (20:20)
[2023-02-22] MEDS ORDERED: predniSONE 20 MG TAB PO SCH ×2 (02:00→08:00)
[2023-02-22] MEDS: Ipratropium/Albuterol 3 ML NEB NEB SCH ×6 (02:00→22:31)
[2023-02-22 04:47] LABS: ALT (SGPT) 11 U/L (8-55); AST (SGOT) 22 U/L (5-34); Albumin 3.4 g/dL (3.5-5.0); Alkaline Phosphatase 132 U/L (40-110); Anion Gap 19 mmol/L (10-20); BUN (Urea Nitrogen) 42 mg/dL (9.8-20.1); Bilirubin, Total 0.3 mg/dL (0.2-1.2); Calc. Creatinine Clearance 19 mL/min (70-130); Calcium 9.5 mg/dL (7.8-10.44); Carbon Dioxide 21 mmol/L (22-29); Chloride 99 mmol/L (98-107); Estimated GFR 9; Globulin 2.9 g/dL (2.4-3.5); Glucose 216 mg/dL (70-105); Phosphorus 4.8 mg/dL (2.3-4.7); Potassium 5.8 mmol/L (3.5-5.1); Protein, Total 6.3 g/dL (6.0-8.3); Sodium 133 mmol/L (136-145)
[2023-02-22] MEDS: Famotidine/PF 20 mg/2ml Vial SLOW IVP SCH (11:12)
[2023-02-22] MEDS: Amlodipine 5 MG TAB PO SCH (11:13)
[2023-02-22] MEDS: Folic Acid/Vit B Comp W-C PO SCH (11:13)
[2023-02-22] MEDS: Cinacalcet HCl 30 MG TAB PO SCH (11:14)
[2023-02-22] MEDS: Apixaban 2.5 MG TAB PO SCH ×2 (11:15→20:35)
[2023-02-22] MEDS: Sevelamer Carbonate 800 MG TAB PO SCH ×3 (11:15→17:31)
[2023-02-22] MEDS: Carvedilol 3.125 MG TAB PO SCH ×2 (11:16→17:31)
[2023-02-22] MEDS: diphenhydrAMINE 25 MG CAP PO SCH (11:16)
[2023-02-22] MEDS: guaiFENesin ER 600 MG TAB PO SCH ×2 (11:16→20:35)
[2023-02-22 14:28] LABS: Potassium 5.4 mmol/L (3.5-5.1)
[2023-02-22] MEDS: risperiDONE 1 MG TAB PO SCH (20:35)
[2023-02-23 00:56] LABS: Potassium 4.2 mmol/L (3.5-5.1)
[2023-02-23] MEDS: Ipratropium/Albuterol 3 ML NEB NEB SCH ×6 (02:33→22:44)
[2023-02-23] MEDS: HumaLOG 300 UNITS/3 ML VIAL SC PRN (06:12)
[2023-02-23] MEDS: Amlodipine 5 MG TAB PO SCH (09:35)
[2023-02-23] MEDS: Sevelamer Carbonate 800 MG TAB PO SCH ×3 (09:35→18:24)
[2023-02-23] MEDS: Carvedilol 3.125 MG TAB PO SCH ×2 (09:35→18:21)
[2023-02-23] MEDS: Apixaban 2.5 MG TAB PO SCH ×2 (09:35→20:16)
[2023-02-23] MEDS: Folic Acid/Vit B Comp W-C PO SCH (09:35)
[2023-02-23] MEDS: Cinacalcet HCl 30 MG TAB PO SCH (09:35)
[2023-02-23] MEDS: diphenhydrAMINE 25 MG CAP PO SCH (09:35)
[2023-02-23] MEDS: Famotidine/PF 20 mg/2ml Vial SLOW IVP SCH (09:36)
[2023-02-23 12:15] LABS: CO2 Tension 75.6 mmHg (35.0-45.0)
[2023-02-23] MEDS: risperiDONE 1 MG TAB PO SCH (20:16)
[2023-02-24] MEDS: Ipratropium/Albuterol 3 ML NEB NEB SCH ×6 (02:28→22:59)
[2023-02-24] MEDS: HumaLOG 300 UNITS/3 ML VIAL SC PRN ×2 (06:43→21:30)
[2023-02-24] MEDS: diphenhydrAMINE 25 MG CAP PO SCH (08:50)
[2023-02-24] MEDS: Carvedilol 3.125 MG TAB PO SCH ×2 (08:50→16:22)
[2023-02-24] MEDS: Folic Acid/Vit B Comp W-C PO SCH (08:51)
[2023-02-24] MEDS: Famotidine/PF 20 mg/2ml Vial SLOW IVP SCH (08:52)
[2023-02-24] MEDS: Apixaban 2.5 MG TAB PO SCH ×2 (08:52→21:00)
[2023-02-24] MEDS: Sevelamer Carbonate 800 MG TAB PO SCH ×3 (08:52→17:10)
[2023-02-24] MEDS: Cinacalcet HCl 30 MG TAB PO SCH (08:52)
[2023-02-24] MEDS: Amlodipine 5 MG TAB PO SCH (08:53)
[2023-02-24 11:12] LABS: Anion Gap 17 mmol/L (10-20); BUN (Urea Nitrogen) 43 mg/dL (9.8-20.1); Calc. Creatinine Clearance 19 mL/min (70-130); Calcium 9.4 mg/dL (7.8-10.44); Carbon Dioxide 24 mmol/L (22-29); Chloride 98 mmol/L (98-107); Estimated GFR 9; Glucose 110 mg/dL (70-105); Potassium 3.9 mmol/L (3.5-5.1); Sodium 135 mmol/L (136-145)
[2023-02-24] MEDS: Senokot S 8.6-50 MG TAB PO PRN ×2 (17:47→22:38)
[2023-02-24] MEDS: risperiDONE 1 MG TAB PO SCH (21:00)
[2023-02-24] MEDS: Acetaminophen 325 MG TAB PO PRN (22:38)
[2023-02-25] MEDS: Ipratropium/Albuterol 3 ML NEB NEB SCH ×6 (02:32→22:15)
[2023-02-25] MEDS: Famotidine/PF 20 mg/2ml Vial SLOW IVP SCH (09:51)
[2023-02-25] MEDS: Folic Acid/Vit B Comp W-C PO SCH (09:51)
[2023-02-25] MEDS: diphenhydrAMINE 25 MG CAP PO SCH (09:52)
[2023-02-25] MEDS: Sevelamer Carbonate 800 MG TAB PO SCH ×3 (09:52→17:22)
[2023-02-25] MEDS: Carvedilol 3.125 MG TAB PO SCH ×2 (09:53→17:22)
[2023-02-25] MEDS: Cinacalcet HCl 30 MG TAB PO SCH (09:53)
[2023-02-25] MEDS: Amlodipine 5 MG TAB PO SCH (09:53)
[2023-02-25] MEDS: Apixaban 2.5 MG TAB PO SCH ×2 (09:54→20:28)
[2023-02-25] MEDS: HumaLOG 300 UNITS/3 ML VIAL SC PRN (12:38)
[2023-02-25] MEDS: risperiDONE 1 MG TAB PO SCH (20:28)
[2023-02-26] MEDS: Ipratropium/Albuterol 3 ML NEB NEB SCH ×4 (04:21→14:46)
[2023-02-26] MEDS: Carvedilol 3.125 MG TAB PO SCH ×2 (08:17→17:14)
[2023-02-26] MEDS: diphenhydrAMINE 25 MG CAP PO SCH (08:17)
[2023-02-26] MEDS: Sevelamer Carbonate 800 MG TAB PO SCH ×3 (08:18→17:14)
[2023-02-26] MEDS: Amlodipine 5 MG TAB PO SCH (08:18)
[2023-02-26] MEDS: Apixaban 2.5 MG TAB PO SCH ×2 (08:19→21:15)
[2023-02-26] MEDS: Cinacalcet HCl 30 MG TAB PO SCH (08:19)
[2023-02-26] MEDS: Folic Acid/Vit B Comp W-C PO SCH (08:19)
[2023-02-26] MEDS: Famotidine 20 MG TAB PO SCH (08:20)
[2023-02-26] MEDS ORDERED: Heparin 10,000 UNITS/ 10 ML VIAL ONE (14:58)
[2023-02-26] MEDS: risperiDONE 1 MG TAB PO SCH (21:15)
[2023-02-26] MEDS: Acetaminophen 325 MG TAB PO PRN (21:15)
[2023-02-27] MEDS: Apixaban 2.5 MG TAB PO SCH ×2 (08:27→20:35)
[2023-02-27] MEDS: Cinacalcet HCl 30 MG TAB PO SCH (08:27)
[2023-02-27] MEDS: Sevelamer Carbonate 800 MG TAB PO SCH ×3 (08:27→18:02)
[2023-02-27] MEDS: Folic Acid/Vit B Comp W-C PO SCH (08:27)
[2023-02-27] MEDS: diphenhydrAMINE 25 MG CAP PO SCH (08:27)
[2023-02-27] MEDS: Carvedilol 3.125 MG TAB PO SCH ×2 (08:28→18:02)
[2023-02-27] MEDS: Amlodipine 5 MG TAB PO SCH (08:28)
[2023-02-27] MEDS: risperiDONE 1 MG TAB PO SCH (20:35)
[2023-02-28] MEDS: Cinacalcet HCl 30 MG TAB PO SCH (08:37)
[2023-02-28] MEDS: Famotidine 20 MG TAB PO SCH (08:37)
[2023-02-28] MEDS: diphenhydrAMINE 25 MG CAP PO SCH (08:37)
[2023-02-28] MEDS: Sevelamer Carbonate 800 MG TAB PO SCH ×3 (08:37→17:13)
[2023-02-28] MEDS: Carvedilol 3.125 MG TAB PO SCH ×2 (08:38→17:13)
[2023-02-28] MEDS: Folic Acid/Vit B Comp W-C PO SCH (08:38)
[2023-02-28] MEDS: Amlodipine 5 MG TAB PO SCH (08:38)
[2023-02-28] MEDS: Apixaban 2.5 MG TAB PO SCH ×2 (08:38→20:43)
[2023-02-28] MEDS ORDERED: Heparin 10,000 UNITS/ 10 ML VIAL ONE (12:46)
[2023-02-28] MEDS: risperiDONE 1 MG TAB PO SCH (20:43)
[2023-03-01 06:27] LABS: #Eosinphils 0.2 thou/uL (0.0-0.7); #Monocytes 1.1 thou/uL (0.11-0.59); #Neutrophils 3.9 thou/uL (1.40-6.50); %Basophils 0.5 % (0.0-1.0); %Eosinophils 3.3 % (0.0-10.0); %Lymphocytes 15.8 % (21.0-51.0); %Monocytes 17.9 % (0.0-10.0); Hematocrit 34.4 % (36.0-47.0); Hemoglobin 10.3 g/dL (12.0-16.0); Mean Corpuscular HGB CONC 29.9 g/dL (32.0-36.0); Mean Corpuscular Hemoglobin 31.2 pg (27.0-31.0); Mean Corpuscular Volume 104.2 fl (78.0-98.0); Mean Platelet Volume 10.3 fL (7.4-10.4); Platelet Count 141 10x3/uL (130-400); White Blood Cell (WBC) Count 6.3 10x3/uL (4.8-10.8)
[2023-03-01 06:51] LABS: Anion Gap 17 mmol/L (10-20); BUN (Urea Nitrogen) 43 mg/dL (9.8-20.1); Calc. Creatinine Clearance 15 mL/min (70-130); Calcium 9.1 mg/dL (7.8-10.44); Carbon Dioxide 23 mmol/L (22-29); Chloride 97 mmol/L (98-107); Estimated GFR 7; Glucose 100 mg/dL (70-105); Sodium 132 mmol/L (136-145)
[2023-03-01] MEDS: Folic Acid/Vit B Comp W-C PO SCH (09:15)
[2023-03-01] MEDS: Apixaban 2.5 MG TAB PO SCH ×2 (09:15→20:23)
[2023-03-01] MEDS: Carvedilol 3.125 MG TAB PO SCH ×2 (09:15→17:29)
[2023-03-01] MEDS: Cinacalcet HCl 30 MG TAB PO SCH (09:15)
[2023-03-01] MEDS: Sevelamer Carbonate 800 MG TAB PO SCH ×3 (09:15→17:29)
[2023-03-01] MEDS: diphenhydrAMINE 25 MG CAP PO SCH (09:16)
[2023-03-01] MEDS: Amlodipine 5 MG TAB PO SCH (09:16)
[2023-03-01 12:04] VITALS: BMI 35.0
[2023-03-01] MEDS: risperiDONE 1 MG TAB PO SCH (20:23)
[2023-03-01] MEDS: Senokot S 8.6-50 MG TAB PO PRN (21:08)
[2023-03-02] MEDS: Acetaminophen 325 MG TAB PO PRN (07:55)
[2023-03-02] MEDS: Sevelamer Carbonate 800 MG TAB PO SCH ×3 (07:55→17:29)
[2023-03-02] MEDS: Folic Acid/Vit B Comp W-C PO SCH (07:56)
[2023-03-02] MEDS: Famotidine 20 MG TAB PO SCH (07:56)
[2023-03-02] MEDS: Senokot S 8.6-50 MG TAB PO PRN (07:56)
[2023-03-02] MEDS: Apixaban 2.5 MG TAB PO SCH ×2 (07:56→20:37)
[2023-03-02] MEDS: Carvedilol 3.125 MG TAB PO SCH ×2 (07:59→17:28)
[2023-03-02] MEDS: Amlodipine 5 MG TAB PO SCH (07:59)
[2023-03-02] MEDS: diphenhydrAMINE 25 MG CAP PO SCH (07:59)
[2023-03-02] MEDS: Cinacalcet HCl 30 MG TAB PO SCH (08:10)
[2023-03-02] MEDS: risperiDONE 1 MG TAB PO SCH (20:37)
[2023-03-03] MEDS: Sevelamer Carbonate 800 MG TAB PO SCH ×3 (09:48→17:29)
[2023-03-03] MEDS: Folic Acid/Vit B Comp W-C PO SCH (09:48)
[2023-03-03] MEDS: Apixaban 2.5 MG TAB PO SCH ×2 (09:48→20:24)
[2023-03-03] MEDS: Cinacalcet HCl 30 MG TAB PO SCH (09:49)
[2023-03-03] MEDS: Amlodipine 5 MG TAB PO SCH (09:49)
[2023-03-03] MEDS: Carvedilol 3.125 MG TAB PO SCH ×2 (09:49→17:29)
[2023-03-03] MEDS: risperiDONE 1 MG TAB PO SCH (20:24)
[2023-03-04] MEDS: Folic Acid/Vit B Comp W-C PO SCH (09:12)
[2023-03-04] MEDS: Amlodipine 5 MG TAB PO SCH (09:13)
[2023-03-04] MEDS: Famotidine 20 MG TAB PO SCH (09:13)
[2023-03-04] MEDS: Sevelamer Carbonate 800 MG TAB PO SCH ×3 (09:14→17:09)
[2023-03-04] MEDS: Cinacalcet HCl 30 MG TAB PO SCH (09:14)
[2023-03-04] MEDS: Apixaban 2.5 MG TAB PO SCH ×2 (09:14→21:27)
[2023-03-04] MEDS: Carvedilol 3.125 MG TAB PO SCH ×2 (09:14→17:09)
[2023-03-04] MEDS: Modafinil 100 MG TAB PO SCH (12:34)
[2023-03-04] MEDS: risperiDONE 1 MG TAB PO SCH (21:27)
[2023-03-05] MEDS: Cinacalcet HCl 30 MG TAB PO SCH (08:42)
[2023-03-05] MEDS: Apixaban 2.5 MG TAB PO SCH ×2 (08:42→20:33)
[2023-03-05] MEDS: Carvedilol 3.125 MG TAB PO SCH ×2 (08:42→18:00)
[2023-03-05] MEDS: Folic Acid/Vit B Comp W-C PO SCH (08:43)
[2023-03-05] MEDS: Amlodipine 5 MG TAB PO SCH (08:43)
[2023-03-05] MEDS: Sevelamer Carbonate 800 MG TAB PO SCH ×3 (08:43→18:00)
[2023-03-05 11:55] VITALS: BP 137/58
[2023-03-05] MEDS: Modafinil 100 MG TAB PO SCH (12:24)
[2023-03-05 15:58] LABS: #Eosinphils 0.1 thou/uL (0.0-0.7); #Monocytes 0.6 thou/uL (0.11-0.59); %Basophils 0.5 % (0.0-1.0); %Eosinophils 2.4 % (0.0-10.0); %Monocytes 11.1 % (0.0-10.0); %Neutrophils 69.7 % (42.0-75.0); Hematocrit 30.7 % (36.0-47.0); Hemoglobin 9.7 g/dL (12.0-16.0); Mean Corpuscular HGB CONC 31.6 g/dL (32.0-36.0); Mean Corpuscular Hemoglobin 31.3 pg (27.0-31.0); Mean Platelet Volume 9.9 fL (7.4-10.4); Platelet Count 151 10x3/uL (130-400); RBC Distribution Width 14.6 % (11.5-14.5); White Blood Cell (WBC) Count 5.7 10x3/uL (4.8-10.8)
[2023-03-05 16:26] LABS: Anion Gap 20 mmol/L (10-20); BUN (Urea Nitrogen) 82 mg/dL (9.8-20.1); Calc. Creatinine Clearance 11 mL/min (70-130); Calcium 8.7 mg/dL (7.8-10.44); Carbon Dioxide 21 mmol/L (22-29); Chloride 95 mmol/L (98-107); Estimated GFR 4; Glucose 133 mg/dL (70-105); Potassium 5.5 mmol/L (3.5-5.1); Sodium 130 mmol/L (136-145)
[2023-03-05 17:47] VITALS: TEMP 96.9
[2023-03-05] MEDS: risperiDONE 1 MG TAB PO SCH (20:33)
== END 2023-03-05 20:45 | disposition home or self-care (01) | DRG 280 ==
LOC: SUATTDRO 14:08 → ERS 14:08 → 2NO 16:34 → CCU 02-19 19:20 → IMCU/EMU 02-20 16:30
PROVIDERS: ADMIT Internal Medicine; ATTEND Emergency Medicine
DX: I11.0 Hypertensive heart disease with heart failure (principal); G93.41 Metabolic encephalopathy; I21.4 Non-ST elevation (NSTEMI) myocardial infarction; J96.21 Acute and chronic respiratory failure with hypoxia; I50.33 Acute on chronic diastolic (congestive) heart failure; N18.6 End stage renal disease; J96.22 Acute and chronic respiratory failure with hypercapnia; E87.1 Hypo-osmolality and hyponatremia; E66.2 Morbid (severe) obesity with alveolar hypoventilation; G47.33 Obstructive sleep apnea (adult) (pediatric); J44.9 Chronic obstructive pulmonary disease, unspecified; Z68.36 Body mass index [BMI] 36.0-36.9, adult; Z99.2 Dependence on renal dialysis; F39 Unspecified mood [affective] disorder
CPT/HCPCS: 36415; 36416; 36600; 70450; 71045; 74177; 80048; 80053; 82805; 83605; 83735; 83880; 84100; 84132; 84145; 84484; 85025; 85379; 86140; 86704; 87040; 87070; 87205; 90935; 93005; 93010; 94640; 94660; 94760; G0257; J0696; J1200; J1644; J1815; J2272; J2920; J7512; J7611; J7620; S0028

== ENCOUNTER 2023-03-07 17:00 | Outpatient (CLI) | payer OTHER | END 2023-03-07 17:01 | disposition home or self-care (01) | LOC: SLEEPLAB 17:00 | PROVIDERS: ATTEND Internal Medicine Critical Care Medicine | DX: G47.33 Obstructive sleep apnea (adult) (pediatric) (principal); E11.9 Type 2 diabetes mellitus without complications; E66.9 Obesity, unspecified; J44.9 Chronic obstructive pulmonary disease, unspecified; I49.9 Cardiac arrhythmia, unspecified; Z68.42 Body mass index [BMI] 45.0-49.9, adult | CPT/HCPCS: 95800 ==

== ENCOUNTER 2023-03-25 17:00 | Outpatient (CLI) | payer OTHER | END 2023-03-25 17:01 | disposition home or self-care (01) | LOC: SLEEPLAB 17:00 | PROVIDERS: ATTEND Internal Medicine Critical Care Medicine | DX: G47.33 Obstructive sleep apnea (adult) (pediatric) (principal); E11.9 Type 2 diabetes mellitus without complications; J44.9 Chronic obstructive pulmonary disease, unspecified; I51.9 Heart disease, unspecified; E66.9 Obesity, unspecified; Z68.42 Body mass index [BMI] 45.0-49.9, adult | CPT/HCPCS: 95811 ==

== ENCOUNTER 2023-04-16 22:32 | Inpatient (IN) | payer OTHER ==
[2023-04-16 23:04] LABS: #Eosinphils 0.1 thou/uL (0.0-0.7); #Monocytes 0.7 thou/uL (0.11-0.59); %Basophils 0.4 % (0.0-1.0); %Eosinophils 0.7 % (0.0-10.0); %Lymphocytes 16.2 % (21.0-51.0); %Monocytes 8.9 % (0.0-10.0); %Neutrophils 73.2 % (42.0-75.0); Hemoglobin 11.6 g/dL (12.0-16.0); Mean Corpuscular Hemoglobin 31.1 pg (27.0-31.0); Mean Corpuscular Volume 107.2 fl (78.0-98.0); Mean Platelet Volume 10.7 fL (7.4-10.4); Platelet Count 242 10x3/uL (130-400); RBC Distribution Width 14.1 % (11.5-14.5); Red Blood Cell (RBC) Count 3.73 mill/uL (4.20-5.40); White Blood Cell (WBC) Count 8.2 10x3/uL (4.8-10.8)
[2023-04-16 23:27] LABS: Actual Bicarbonate (HCO3a) 33.8 mEq/L (22-28); Analyzer IN Cardio ER; Base Excess (BEa) 2.4 mEq/L (-2.0 to +3.0); Calcium, Ionized (arterial) 1.23 mmol/L (1.12-1.30); Carboxyhemoglobin (COHb) 1.2 gm% (0.0-3.0); Hematocrit-ABG 35 % (36.0-47.0); Hemoglobin (Hb) 11.9 g/dL (12.0-16.0); O2 Tension (PaO2), arterial 124.6 mmHg (> 80.0); Potassium - ABG Lab 4.41 mmol/L (3.70-5.30)
[2023-04-16 23:28] LABS: ALT (SGPT) 19 U/L (8-55); AST (SGOT) 25 U/L (5-34); Alkaline Phosphatase 204 U/L (40-110); Anion Gap 19 mmol/L (10-20); BUN (Urea Nitrogen) 37 mg/dL (9.8-20.1); Bilirubin, Total 0.7 mg/dL (0.2-1.2); Calc. Creatinine Clearance 0 mL/min (70-130); Calcium 9.3 mg/dL (7.8-10.44); Carbon Dioxide 27 mmol/L (22-29); Chloride 95 mmol/L (98-107); Estimated GFR 5; Globulin 3.1 g/dL (2.4-3.5); Glucose 166 mg/dL (70-105); Lipase 40 U/L (8-78); Potassium 4.8 mmol/L (3.5-5.1); Protein, Total 7.1 g/dL (6.0-8.3); Sodium 136 mmol/L (136-145)
[2023-04-16 23:33] LABS: CO2 Tension 98.7 mmHg (35.0-45.0); pH, Arterial 7.153 (7.35-7.45)
[2023-04-16 23:34] LABS: ALV-art Gradient 108.525 mmHg (0-20); Puncture Site LR
[2023-04-16 23:37] LABS: Troponin I 0.107 ng/mL (< 0.028)
[2023-04-16] MEDS ORDERED: NOREPINEPHRINE 8 MG/250 ML-D5W 250 ML ONE (23:44)
[2023-04-17] MEDS ORDERED: Vancomycin 1 GM/200 ML (FROZEN) BAG ONE (00:14)
[2023-04-17] MEDS ORDERED: Sodium Chloride 0.9% 100 ML ONE (00:14)
[2023-04-17] MEDS ORDERED: Cefepime 2 GM VIAL ONE (00:14)
[2023-04-17] MEDS ORDERED: Acetaminophen 650 MG Suppository PR PRN (00:41)
[2023-04-17] MEDS ORDERED: Ondansetron ODT 4 MG TAB PO PRN (00:41)
[2023-04-17] MEDS ORDERED: Acetaminophen 325 MG TAB PO PRN (00:41)
[2023-04-17] MEDS ORDERED: Ondansetron PF 4 MG/2 ML Vial IVP PRN (00:41)
[2023-04-17 00:44] LABS: SARS-CoV-2 NAA Rapid Test Not Detected (NotDetected)
[2023-04-17 00:45] LABS: Magnesium 2.7 mg/dL (1.6-2.6)
[2023-04-17 00:47] LABS: Bacteria/HPF 4+ HPF (None Seen); Bilirubin Negative (Negative); Blood, Urine 1+ (Negative); CAUTI Indications for Culture Alt mental st,lethar; Clarity Extra Turbid (Clear); Glucose, Urine (Dipstick) Normal (Negative); Ketone, Urine Negative (Negative); Leukocyte 500 Leu/uL (Negative); Nitrite Negative (Negative); Protein, Urine (Dipstick) 70 mg/dL (Neg-Trace); RBC/HPF None Seen HPF (0-3); Specific Gravity, Urine 1.012 (1.002-1.036); Squamous Epithelial None Seen HPF (0-3); Urobilinogen Normal mg/dL (Less than 2); WBC/HPF Greater than 50 HPF (0-3)
[2023-04-17 00:49] LABS: Urine Culture Reflex Yes Yes
[2023-04-17 01:42] LABS: Analyzer IN Cardio ER; Base Excess (BEa) 0.3 mEq/L (-2.0 to +3.0); Calcium, Ionized (arterial) 1.24 mmol/L (1.12-1.30); Carboxyhemoglobin (COHb) 1.2 gm% (0.0-3.0); Hematocrit-ABG 36 % (36.0-47.0); Hemoglobin (Hb) 12.1 g/dL (12.0-16.0); O2 Tension (PaO2), arterial 135.5 mmHg (> 80.0); Potassium - ABG Lab 4.83 mmol/L (3.70-5.30)
[2023-04-17 01:45] LABS: CO2 Tension 87.5 mmHg (35.0-45.0); pH, Arterial 7.167 (7.35-7.45)
[2023-04-17 01:46] LABS: ALV-art Gradient 111.625 mmHg (0-20); Puncture Site LR
[2023-04-17 02:07] LABS: INR-International Normal Ratio 1.1; Prothrombin Time 14.2 sec (12.0-14.7)
[2023-04-17 02:08] LABS: PTT 32.7 sec (22.9-36.1)
[2023-04-17] MEDS ORDERED: Dextrose 50% Abboject 50 ML SYRINGE SLOW IVP PRN (02:11)
[2023-04-17] MEDS ORDERED: HumaLOG 300 UNITS/3 ML VIAL SC PRN ×2 (02:11)
[2023-04-17] MEDS ORDERED: Glucagon 1 MG/ML KIT IM PRN (02:11)
[2023-04-17] MEDS ORDERED: Dextrose 5% in Water 1,000 ML IV PRN (02:11)
[2023-04-17 02:29] LABS: Troponin I 0.214 ng/mL (< 0.028)
[2023-04-17 03:53] LABS: #Eosinphils 0.1 thou/uL (0.0-0.7); #Monocytes 1.1 thou/uL (0.11-0.59); #Neutrophils 5.4 thou/uL (1.40-6.50); %Basophils 0.4 % (0.0-1.0); %Lymphocytes 19.3 % (21.0-51.0); %Monocytes 13.6 % (0.0-10.0); %Neutrophils 64.7 % (42.0-75.0); Hematocrit 38.2 % (36.0-47.0); Hemoglobin 10.9 g/dL (12.0-16.0); Mean Corpuscular HGB CONC 28.5 g/dL (32.0-36.0); Mean Corpuscular Hemoglobin 30.5 pg (27.0-31.0); Mean Platelet Volume 9.9 fL (7.4-10.4); Platelet Count 205 10x3/uL (130-400); RBC Distribution Width 13.9 % (11.5-14.5); Red Blood Cell (RBC) Count 3.57 mill/uL (4.20-5.40); White Blood Cell (WBC) Count 8.3 10x3/uL (4.8-10.8)
[2023-04-17 04:17] LABS: Anion Gap 18 mmol/L (10-20); BUN (Urea Nitrogen) 40 mg/dL (9.8-20.1); Calc. Creatinine Clearance 13 mL/min (70-130); Calcium 9.4 mg/dL (7.8-10.44); Carbon Dioxide 25 mmol/L (22-29); Chloride 97 mmol/L (98-107); Estimated GFR 5; Glucose 151 mg/dL (70-105); Potassium 4.8 mmol/L (3.5-5.1); Sodium 135 mmol/L (136-145)
[2023-04-17 04:23] LABS: Actual Bicarbonate (HCO3a) 31.5 mEq/L (22-28); Base Excess (BEa) 0.4 mEq/L (-2.0 to +3.0); Calcium, Ionized (arterial) 1.27 mmol/L (1.12-1.30); Carboxyhemoglobin (COHb) 1.2 gm% (0.0-3.0); Hematocrit-ABG 35 % (36.0-47.0); Hemoglobin (Hb) 11.9 g/dL (12.0-16.0); O2 Tension (PaO2), arterial 98.5 mmHg (> 80.0); Potassium - ABG Lab 4.74 mmol/L (3.70-5.30)
[2023-04-17] MEDS ORDERED: Vancomycin 1 GM in Premix 1 BAG IVPB SCH (04:30)
[2023-04-17] MEDS ORDERED: Vancomycin Dialysis Sliding Scale (Wt > 99) FS SCH (04:30)
[2023-04-17 04:31] LABS: Troponin I 0.306 ng/mL (< 0.028)
[2023-04-17] MEDS ORDERED: NOREPINEPHRINE 8 MG/250 ML-D5W 250 ML IVPB SCH (04:45)
[2023-04-17] MEDS ORDERED: Propofol 1,000 MG/100 ML VIAL IV ONE (04:53)
[2023-04-17] MEDS: Propofol 1,000 MG/100 ML VIAL IV PRN ×7 (04:53→22:55)
[2023-04-17] MEDS ORDERED: Propofol BOLUS 1,000 MG/100 ML VIAL IV PRN (05:00)
[2023-04-17] MEDS ORDERED: Fentanyl CADD 100 ML IV SCH (05:00)
[2023-04-17] MEDS ORDERED: DISCONTINUE PREVIOUS NARCOTIC PAIN MEDICATIONS AND BENZODIAZEPINES FS SCH (05:00)
[2023-04-17] MEDS ORDERED: PROPOFOL 200 MG/20 ML VIAL IV SCH (05:00)
[2023-04-17] MEDS ORDERED: Ventilator Sedation Protocol 1 EACH FS SCH (05:00)
[2023-04-17] MEDS ORDERED: Fentanyl BOLUS 250 ML IVPB PRN (05:00)
[2023-04-17] MEDS ORDERED: Lorazepam 2 MG/ML VIAL SLOW IVP PRN (05:00)
[2023-04-17] MEDS ORDERED: Morphine 2 MG/ML VIAL SLOW IVP PRN (05:00)
[2023-04-17 05:21] LABS: HBSAB Concentration Less than 8.00 mIU/mL; Hep B Surf AB Non-Reactive (NonReactive); Hep B Surf Ag Non-Reactive S/CO (NonReactive)
[2023-04-17 05:38] LABS: Actual Bicarbonate (HCO3a) 26.9 mEq/L (22-28); Base Excess (BEa) 3.4 mEq/L (-2.0 to +3.0); CO2 Tension 36.7 mmHg (35.0-45.0); Calcium, Ionized (arterial) 1.14 mmol/L (1.12-1.30); Carboxyhemoglobin (COHb) 1.5 gm% (0.0-3.0); Hematocrit-ABG 34 % (36.0-47.0); Hemoglobin (Hb) 11.5 g/dL (12.0-16.0); O2 Tension (PaO2), arterial 79.5 mmHg (> 80.0); Potassium - ABG Lab 4.49 mmol/L (3.70-5.30); pH, Arterial 7.483 (7.35-7.45)
[2023-04-17 05:43] LABS: Puncture Site LBA
[2023-04-17 05:46] LABS: CO2 Tension 92.5 mmHg (35.0-45.0); Puncture Site LBA
[2023-04-17 05:47] LABS: ALV-art Gradient 71.075 mmHg (0-20)
[2023-04-17] MEDS ORDERED: methylPREDNISolone Sod Succ 40 MG VIAL IVP SCH (06:00)
[2023-04-17] MEDS: Ipratropium/Albuterol 3 ML NEB NEB SCH ×4 (07:57→23:55)
[2023-04-17] MEDS ORDERED: Vancomycin (BATCH) 1.25 GM in Premix 1 BAG IVPB SCH (09:00)
[2023-04-17] MEDS ORDERED: Famotidine/PF 20 mg/2ml Vial SLOW IVP SCH (09:00)
[2023-04-17] MEDS: Heparin 5,000 UNITS/ML VIAL SC SCH ×3 (09:53→20:29)
[2023-04-17] MEDS: methylPREDNISolone Sod Succ 40 MG VIAL IVP SCH ×3 (11:52→23:59)
[2023-04-18] MEDS: Cefepime 1 GM in Sodium Chloride 0.9% 100 ML IVPB SCH (00:07)
[2023-04-18] MEDS: Propofol 1,000 MG/100 ML VIAL IV PRN ×3 (01:36→07:47)
[2023-04-18 04:27] LABS: #Monocytes 0.2 thou/uL (0.11-0.59); #Neutrophils 6.9 thou/uL (1.40-6.50); %Basophils 0.1 % (0.0-1.0); %Monocytes 2.5 % (0.0-10.0); %Neutrophils 86.2 % (42.0-75.0); Hematocrit 35.6 % (36.0-47.0); Hemoglobin 11.2 g/dL (12.0-16.0); Mean Corpuscular HGB CONC 31.5 g/dL (32.0-36.0); Mean Corpuscular Hemoglobin 30.4 pg (27.0-31.0); Mean Corpuscular Volume 96.5 fl (78.0-98.0); Mean Platelet Volume 10.1 fL (7.4-10.4); Platelet Count 221 10x3/uL (130-400); RBC Distribution Width 14.2 % (11.5-14.5); Red Blood Cell (RBC) Count 3.69 mill/uL (4.20-5.40)
[2023-04-18 04:49] LABS: ALT (SGPT) 17 U/L (8-55); AST (SGOT) 21 U/L (5-34); Albumin 3.4 g/dL (3.5-5.0); Alkaline Phosphatase 150 U/L (40-110); Anion Gap 21 mmol/L (10-20); BUN (Urea Nitrogen) 31 mg/dL (9.8-20.1); Bilirubin, Total 0.6 mg/dL (0.2-1.2); Calc. Creatinine Clearance 16 mL/min (70-130); Calcium 10.8 mg/dL (7.8-10.44); Carbon Dioxide 24 mmol/L (22-29); Chloride 96 mmol/L (98-107); Estimated GFR 7; Globulin 3.5 g/dL (2.4-3.5); Glucose 170 mg/dL (70-105); Potassium 3.9 mmol/L (3.5-5.1); Protein, Total 6.9 g/dL (6.0-8.3); Sodium 137 mmol/L (136-145)
[2023-04-18] MEDS: methylPREDNISolone Sod Succ 40 MG VIAL IVP SCH (06:24)
[2023-04-18] MEDS: Ipratropium/Albuterol 3 ML NEB NEB SCH ×4 (07:06→23:05)
[2023-04-18 07:29] LABS: Actual Bicarbonate (HCO3a) 27.3 mEq/L (22-28); Base Excess (BEa) 2.9 mEq/L (-2.0 to +3.0); Calcium, Ionized (arterial) 1.24 mmol/L (1.12-1.30); Carboxyhemoglobin (COHb) 0.6 gm% (0.0-3.0); Hematocrit-ABG 35 % (36.0-47.0); Hemoglobin (Hb) 11.9 g/dL (12.0-16.0); O2 Tension (PaO2), arterial 73.1 mmHg (> 80.0); Potassium - ABG Lab 3.88 mmol/L (3.70-5.30); pH, Arterial 7.441 (7.35-7.45)
[2023-04-18 07:32] LABS: Puncture Site LA
[2023-04-18 08:06] LABS: Vancomycin, Random 9.9 ug/mL (See Comment)
[2023-04-18] MEDS: Heparin 5,000 UNITS/ML VIAL SC SCH ×4 (10:07→21:15)
[2023-04-18] MEDS ORDERED: Heparin 10,000 UNITS/ 10 ML VIAL ONE (10:58)
[2023-04-18] MEDS ORDERED: Vancomycin (BATCH) 1.5 GM in Premix 1 BAG IVPB SCH (17:00)
[2023-04-18] MEDS ORDERED: Apixaban 2.5 MG TAB PO SCH (22:00)
[2023-04-18] MEDS ORDERED: risperiDONE 1 MG TAB PO SCH (22:00)
[2023-04-19] MEDS: Cefepime 1 GM in Sodium Chloride 0.9% 100 ML IVPB SCH (00:57)
[2023-04-19] MEDS ORDERED: Albumin 25% 25 GM/100 ML BOT IVPB SCH (01:15)
[2023-04-19] MEDS ORDERED: Melatonin 3 MG TAB PO PRN (01:32)
[2023-04-19] MEDS ORDERED: Sodium Chloride 0.9% 500 ML IV SCH (03:30)
[2023-04-19 04:36] LABS: #Monocytes 1.2 thou/uL (0.11-0.59); #Neutrophils 4.1 thou/uL (1.40-6.50); %Basophils 0.6 % (0.0-1.0); %Eosinophils 0.6 % (0.0-10.0); %Lymphocytes 21.8 % (21.0-51.0); %Monocytes 16.9 % (0.0-10.0); %Neutrophils 59.7 % (42.0-75.0); Hematocrit 32.9 % (36.0-47.0); Hemoglobin 10.2 g/dL (12.0-16.0); Mean Corpuscular Hemoglobin 30.9 pg (27.0-31.0); Mean Corpuscular Volume 99.7 fl (78.0-98.0); Mean Platelet Volume 10.3 fL (7.4-10.4); Platelet Count 210 10x3/uL (130-400); RBC Distribution Width 14.6 % (11.5-14.5); White Blood Cell (WBC) Count 6.9 10x3/uL (4.8-10.8)
[2023-04-19 05:04] LABS: Anion Gap 16 mmol/L (10-20); BUN (Urea Nitrogen) 13 mg/dL (9.8-20.1); Calc. Creatinine Clearance 24 mL/min (70-130); Calcium 10.2 mg/dL (7.8-10.44); Carbon Dioxide 24 mmol/L (22-29); Chloride 99 mmol/L (98-107); Estimated GFR 12; Glucose 74 mg/dL (70-105); Potassium 3.4 mmol/L (3.5-5.1); Sodium 136 mmol/L (136-145)
[2023-04-19] MEDS ORDERED: NOREPINEPHRINE 8 MG/250 ML-D5W 250 ML IVPB SCH (05:15)
[2023-04-19] MEDS: Ipratropium/Albuterol 3 ML NEB NEB SCH ×3 (07:53→20:56)
[2023-04-19] MEDS ORDERED: Carvedilol 6.25 MG TAB PO SCH (08:00)
[2023-04-19] MEDS: Folic Acid/Vit B Comp W-C PO SCH (09:16)
[2023-04-19] MEDS: Cefdinir 300 MG CAP PO SCH (09:16)
[2023-04-19] MEDS: Apixaban 2.5 MG TAB PO SCH ×2 (09:16→21:06)
[2023-04-19] MEDS: Cinacalcet HCl 30 MG TAB PO SCH (09:16)
[2023-04-19] MEDS: Sevelamer Carbonate 800 MG TAB PO SCH ×3 (11:19→18:36)
[2023-04-19] MEDS: risperiDONE 1 MG TAB PO SCH (21:06)
[2023-04-20] MEDS: Ipratropium/Albuterol 3 ML NEB NEB SCH ×5 (00:22→23:45)
[2023-04-20 04:43] LABS: Anion Gap 15 mmol/L (10-20); BUN (Urea Nitrogen) 30 mg/dL (9.8-20.1); Calc. Creatinine Clearance 14 mL/min (70-130); Calcium 9.9 mg/dL (7.8-10.44); Carbon Dioxide 26 mmol/L (22-29); Chloride 98 mmol/L (98-107); Estimated GFR 6; Glucose 97 mg/dL (70-105); Potassium 3.4 mmol/L (3.5-5.1); Sodium 136 mmol/L (136-145)
[2023-04-20] MEDS ORDERED: Heparin 10,000 UNITS/ 10 ML VIAL ONE (08:44)
[2023-04-20] MEDS: Folic Acid/Vit B Comp W-C PO SCH (09:25)
[2023-04-20] MEDS: Sevelamer Carbonate 800 MG TAB PO SCH ×3 (09:26→17:35)
[2023-04-20] MEDS: Cefdinir 300 MG CAP PO SCH (09:26)
[2023-04-20] MEDS: Apixaban 2.5 MG TAB PO SCH ×2 (09:26→21:17)
[2023-04-20] MEDS: Cinacalcet HCl 30 MG TAB PO SCH (09:26)
[2023-04-20 13:32] VITALS: BMI 40.4
[2023-04-20] MEDS: risperiDONE 1 MG TAB PO SCH (21:17)
[2023-04-21 05:06] LABS: Anion Gap 16 mmol/L (10-20); BUN (Urea Nitrogen) 33 mg/dL (9.8-20.1); Calc. Creatinine Clearance 12 mL/min (70-130); Calcium 9.8 mg/dL (7.8-10.44); Carbon Dioxide 25 mmol/L (22-29); Chloride 99 mmol/L (98-107); Estimated GFR 5; Glucose 122 mg/dL (70-105); Potassium 4.4 mmol/L (3.5-5.1); Sodium 136 mmol/L (136-145)
[2023-04-21] MEDS: Ipratropium/Albuterol 3 ML NEB NEB SCH ×3 (07:40→19:31)
[2023-04-21] MEDS ORDERED: Heparin 10,000 UNITS/ 10 ML VIAL ONE (08:45)
[2023-04-21] MEDS: Cefdinir 300 MG CAP PO SCH (10:15)
[2023-04-21] MEDS: Folic Acid/Vit B Comp W-C PO SCH (10:15)
[2023-04-21] MEDS: Apixaban 2.5 MG TAB PO SCH ×2 (10:15→20:53)
[2023-04-21] MEDS: Sevelamer Carbonate 800 MG TAB PO SCH ×3 (10:15→17:40)
[2023-04-21] MEDS: Cinacalcet HCl 30 MG TAB PO SCH (10:15)
[2023-04-21 10:21] VITALS: BP 132/73
[2023-04-21] MEDS: risperiDONE 1 MG TAB PO SCH (20:53)
[2023-04-21 22:19] VITALS: TEMP 97
== END 2023-04-21 22:45 | disposition home or self-care (01) | DRG 871 ==
LOC: ERS 22:32 → ERHOLD 04-17 00:48 → CCU 04-17 02:51 → IMCU/EMU 04-19 11:41
PROVIDERS: ADMIT Student in an Organized Health Care Education/Training Program; ATTEND Family Medicine
PROC: 0BH17EZ Insertion of Endotracheal Airway into Trachea, Via Natural or Artificial Opening (ICD-10-PCS; principal; 2023-04-16)
PROC: 3E03329 Introduction of Other Anti-infective into Peripheral Vein, Percutaneous Approach (ICD-10-PCS; 2023-04-16)
PROC: 4A133R1 Monitoring of Arterial Saturation, Peripheral, Percutaneous Approach (ICD-10-PCS; 2023-04-16)
PROC: 3E033XZ Introduction of Vasopressor into Peripheral Vein, Percutaneous Approach (ICD-10-PCS; 2023-04-16)
PROC: 5A1D70Z Performance of Urinary Filtration, Intermittent, Less than 6 Hours Per Day (ICD-10-PCS; 2023-04-16)
PROC: 5A1945Z Respiratory Ventilation, 24-96 Consecutive Hours (ICD-10-PCS; 2023-04-17)
PROC: 5A09357 Assistance with Respiratory Ventilation, Less than 24 Consecutive Hours, Continuous Positive Airway Pressure (ICD-10-PCS; 2023-04-17)
DX: A41.9 Sepsis, unspecified organism (principal); G93.41 Metabolic encephalopathy; I21.4 Non-ST elevation (NSTEMI) myocardial infarction; J96.22 Acute and chronic respiratory failure with hypercapnia; J96.21 Acute and chronic respiratory failure with hypoxia; N18.6 End stage renal disease; R65.21 Severe sepsis with septic shock; I13.2 Hypertensive heart and chronic kidney disease with heart failure and with stage 5 chronic kidney disease, or end stage renal disease; N39.0 Urinary tract infection, site not specified; E87.29 Other acidosis; E66.2 Morbid (severe) obesity with alveolar hypoventilation; Z68.41 Body mass index [BMI] 40.0-44.9, adult; I95.9 Hypotension, unspecified; E11.22 Type 2 diabetes mellitus with diabetic chronic kidney disease; E78.5 Hyperlipidemia, unspecified; J44.9 Chronic obstructive pulmonary disease, unspecified; R79.89 Other specified abnormal findings of blood chemistry; I50.9 Heart failure, unspecified; F20.9 Schizophrenia, unspecified; Z93.2 Ileostomy status; Z88.0 Allergy status to penicillin; Z88.8 Allergy status to other drugs, medicaments and biological substances; S31.109D Unspecified open wound of abdominal wall, unspecified quadrant without penetration into peritoneal cavity, subsequent encounter; Z11.52 Encounter for screening for COVID-19
CPT/HCPCS: 36415; 36416; 36556; 36600; 51702; 71045; 74176; 80048; 80053; 80202; 81001; 82805; 83605; 83690; 83735; 83880; 84145; 84443; 84484; 85025; 85610; 85730; 86706; 87040; 87077; 87081; 87086; 87149; 87340; 90935; 93005; 94002; 94003; 94640; 94660; 96365; 96366; 96375; 97139; G0257; J0692; J1644; J2060; J2704; J2920; J3370; J3370-JW; J3490; J7030; J7620; P9047; S0028

== ENCOUNTER 2023-05-18 06:35 | Inpatient (IN) | payer OTHER ==
[2023-05-18 07:15] LABS: #Eosinphils 0.1 thou/uL (0.0-0.7); #Monocytes 0.6 thou/uL (0.11-0.59); #Neutrophils 3.4 thou/uL (1.40-6.50); %Basophils 0.8 % (0.0-1.0); %Eosinophils 2.1 % (0.0-10.0); %Lymphocytes 20.4 % (21.0-51.0); %Monocytes 11.9 % (0.0-10.0); %Neutrophils 64.4 % (42.0-75.0); Hematocrit 35.7 % (36.0-47.0); Hemoglobin 11.1 g/dL (12.0-16.0); Mean Corpuscular HGB CONC 31.1 g/dL (32.0-36.0); Mean Corpuscular Hemoglobin 31.1 pg (27.0-31.0); Mean Platelet Volume 10.3 fL (7.4-10.4); Platelet Count 184 10x3/uL (130-400); RBC Distribution Width 15.6 % (11.5-14.5); Red Blood Cell (RBC) Count 3.57 mill/uL (4.20-5.40); White Blood Cell (WBC) Count 5.2 10x3/uL (4.8-10.8)
[2023-05-18 07:39] LABS: ALT (SGPT) 12 U/L (8-55); AST (SGOT) 26 U/L (5-34); Albumin 3.4 g/dL (3.5-5.0); Alkaline Phosphatase 88 U/L (40-110); Anion Gap 21 mmol/L (10-20); BUN (Urea Nitrogen) 47 mg/dL (9.8-20.1); Bilirubin, Total 0.5 mg/dL (0.2-1.2); Calc. Creatinine Clearance 0 mL/min (70-130); Calcium 9.7 mg/dL (7.8-10.44); Carbon Dioxide 25 mmol/L (22-29); Chloride 100 mmol/L (98-107); Estimated GFR 3; Globulin 3.3 g/dL (2.4-3.5); Glucose 77 mg/dL (70-105); Potassium 4.2 mmol/L (3.5-5.1); Protein, Total 6.7 g/dL (6.0-8.3); Sodium 142 mmol/L (136-145)
[2023-05-18] MEDS ORDERED: HumaLOG 300 UNITS/3 ML VIAL SC PRN ×2 (09:56)
[2023-05-18] MEDS ORDERED: Dextrose 5% in Water 1,000 ML IV PRN (09:56)
[2023-05-18] MEDS ORDERED: Dextrose 50% Abboject 50 ML SYRINGE SLOW IVP PRN (09:56)
[2023-05-18] MEDS ORDERED: Glucagon 1 MG/ML KIT IM PRN (09:56)
[2023-05-18 10:23] VITALS: BMI 37.8
[2023-05-18] MEDS ORDERED: PROPOFOL 20 ML ONE (14:33)
[2023-05-18] MEDS ORDERED: fentaNYL 50 mcg/mL 1 mL Vial ONE (14:34)
[2023-05-18] MEDS ORDERED: ePHEDrine Sulfate 50 MG/10 ML VIAL ONE (14:37)
[2023-05-18] MEDS ORDERED: Heparin 10,000 UNITS/ 10 ML VIAL ONE ×2 (14:49→16:01)
[2023-05-18] MEDS ORDERED: Bupivacaine PF 0.5% 30 ML VIAL ONE (14:50)
[2023-05-18] MEDS ORDERED: EPINEPHrine 1 MG/ML VIAL ONE (14:50)
[2023-05-18] MEDS ORDERED: Lidocaine 2% PF 5 ML VIAL ONE (14:50)
[2023-05-18] MEDS ORDERED: Lidocaine 1% PF 5 ML VIAL ONE (15:11)
[2023-05-18] MEDS ORDERED: Clindamycin/D5W 600 mg/50 ml Premix Bag ONE (15:14)
[2023-05-18] MEDS ORDERED: PHENYLEPHRINE-NS 100 MCG/ML 10 ML SYRINGE ONE (15:46)
[2023-05-18] MEDS ORDERED: Midodrine HCl 5 MG TAB PO PRN (18:17)
[2023-05-18] MEDS: Apixaban 2.5 MG TAB PO SCH (21:15)
[2023-05-18] MEDS: risperiDONE 1 MG TAB PO SCH (21:15)
[2023-05-19 06:08] LABS: #Eosinphils 0.1 thou/uL (0.0-0.7); #Monocytes 0.6 thou/uL (0.11-0.59); #Neutrophils 3.2 thou/uL (1.40-6.50); %Basophils 0.6 % (0.0-1.0); %Eosinophils 1.9 % (0.0-10.0); %Lymphocytes 18.4 % (21.0-51.0); %Monocytes 11.5 % (0.0-10.0); %Neutrophils 67.4 % (42.0-75.0); Hematocrit 30.8 % (36.0-47.0); Hemoglobin 9.6 g/dL (12.0-16.0); Mean Corpuscular HGB CONC 31.2 g/dL (32.0-36.0); Mean Corpuscular Hemoglobin 30.8 pg (27.0-31.0); Mean Corpuscular Volume 98.7 fl (78.0-98.0); Platelet Count 154 10x3/uL (130-400); RBC Distribution Width 15.6 % (11.5-14.5); Red Blood Cell (RBC) Count 3.12 mill/uL (4.20-5.40); White Blood Cell (WBC) Count 4.8 10x3/uL (4.8-10.8)
[2023-05-19 06:38] LABS: Anion Gap 18 mmol/L (10-20); BUN (Urea Nitrogen) 56 mg/dL (9.8-20.1); Calc. Creatinine Clearance 7 mL/min (70-130); Carbon Dioxide 26 mmol/L (22-29); Chloride 99 mmol/L (98-107); Estimated GFR 3; Glucose 116 mg/dL (70-105); Potassium 3.6 mmol/L (3.5-5.1); Sodium 139 mmol/L (136-145)
[2023-05-19] MEDS: Sevelamer Carbonate 800 MG TAB PO SCH ×3 (09:27→18:19)
[2023-05-19] MEDS: Cinacalcet HCl 30 MG TAB PO SCH (09:27)
[2023-05-19] MEDS: Apixaban 2.5 MG TAB PO SCH ×2 (09:27→21:59)
[2023-05-19 18:00] LABS: HBSAB Concentration Less than 8.00 mIU/mL; HBSAg Index 0.16 S/CO (0-0.99); Hep B Surf AB Non-Reactive (NonReactive); Hep B Surf Ag Non-Reactive S/CO (NonReactive)
[2023-05-19] MEDS: risperiDONE 1 MG TAB PO SCH (21:59)
[2023-05-19] MEDS: Melatonin 3 MG TAB PO PRN (21:59)
[2023-05-20 06:11] LABS: #Eosinphils 0.2 thou/uL (0.0-0.7); #Monocytes 0.6 thou/uL (0.11-0.59); #Neutrophils 2.4 thou/uL (1.40-6.50); %Basophils 0.9 % (0.0-1.0); %Eosinophils 3.7 % (0.0-10.0); %Lymphocytes 24.4 % (21.0-51.0); %Monocytes 14.1 % (0.0-10.0); %Neutrophils 56.7 % (42.0-75.0); Hematocrit 33.5 % (36.0-47.0); Hemoglobin 10.3 g/dL (12.0-16.0); Mean Corpuscular HGB CONC 30.7 g/dL (32.0-36.0); Mean Corpuscular Hemoglobin 30.5 pg (27.0-31.0); Mean Corpuscular Volume 99.1 fl (78.0-98.0); Mean Platelet Volume 11.4 fL (7.4-10.4); Platelet Count 181 10x3/uL (130-400); Red Blood Cell (RBC) Count 3.38 mill/uL (4.20-5.40); White Blood Cell (WBC) Count 4.3 10x3/uL (4.8-10.8)
[2023-05-20 06:33] LABS: Anion Gap 17 mmol/L (10-20); BUN (Urea Nitrogen) 21 mg/dL (9.8-20.1); Calc. Creatinine Clearance 12 mL/min (70-130); Calcium 9.5 mg/dL (7.8-10.44); Carbon Dioxide 27 mmol/L (22-29); Chloride 98 mmol/L (98-107); Estimated GFR 5; Glucose 75 mg/dL (70-105); Potassium 4.1 mmol/L (3.5-5.1); Sodium 138 mmol/L (136-145)
[2023-05-20] MEDS: Sevelamer Carbonate 800 MG TAB PO SCH ×3 (08:15→17:29)
[2023-05-20] MEDS: Apixaban 2.5 MG TAB PO SCH ×2 (08:15→20:24)
[2023-05-20] MEDS: Cinacalcet HCl 30 MG TAB PO SCH (08:15)
[2023-05-20] MEDS: risperiDONE 1 MG TAB PO SCH (20:24)
[2023-05-20] MEDS: Melatonin 3 MG TAB PO PRN (20:24)
[2023-05-20] MEDS: Acetaminophen 325 MG TAB PO PRN (20:24)
[2023-05-20] MEDS: predniSONE 50 MG TAB PO SCH (20:25)
[2023-05-21] MEDS ORDERED: predniSONE 50 MG TAB PO SCH ×2 (02:00→08:00)
[2023-05-21 05:13] LABS: Hematocrit 35.5 % (36.0-47.0); Hemoglobin 11.1 g/dL (12.0-16.0)
[2023-05-21 05:49] LABS: Anion Gap 20 mmol/L (10-20); BUN (Urea Nitrogen) 39 mg/dL (9.8-20.1); Calc. Creatinine Clearance 9 mL/min (70-130); Calcium 9.6 mg/dL (7.8-10.44); Carbon Dioxide 23 mmol/L (22-29); Chloride 96 mmol/L (98-107); Estimated GFR 4; Glucose 233 mg/dL (70-105); Potassium 4.7 mmol/L (3.5-5.1); Sodium 134 mmol/L (136-145)
[2023-05-21] MEDS ORDERED: diphenhydrAMINE 25 MG CAP PO SCH (08:00)
[2023-05-21] MEDS ORDERED: hydrALAZINE 20 MG/ML VIAL SLOW IVP SCH (08:45)
[2023-05-21] MEDS: Apixaban 2.5 MG TAB PO SCH ×2 (08:53→20:41)
[2023-05-21] MEDS: Cinacalcet HCl 30 MG TAB PO SCH (08:53)
[2023-05-21] MEDS: Sevelamer Carbonate 800 MG TAB PO SCH ×3 (08:53→20:50)
[2023-05-21] MEDS ORDERED: Lidocaine 1% PF 5 ML VIAL ONE (10:18)
[2023-05-21] MEDS ORDERED: Sodium Bicarbonate 0.5 MEQ/ML SDV 10 ML ONE (10:18)
[2023-05-21] MEDS ORDERED: Iopamidol 100 ML FS ONE ×2 (10:19→12:22)
[2023-05-21] MEDS ORDERED: Heparin 1,000 UNITS/ML VIAL ONE (10:49)
[2023-05-21] MEDS ORDERED: fentaNYL 50 mcg/mL 1 mL Vial ONE ×3 (11:53→13:37)
[2023-05-21] MEDS ORDERED: Activase 2 MG VIAL ONE (12:08)
[2023-05-21] MEDS ORDERED: Heparin 10,000 UNITS/ 10 ML VIAL ONE (12:08)
[2023-05-21] MEDS ORDERED: Water For Injection,Sterile 20 ML ONE (12:09)
[2023-05-21] MEDS ORDERED: diphenhydrAMINE 50 MG/ML VIAL ONE (14:14)
[2023-05-21] MEDS ORDERED: methylPREDNISolone Sod Succ 40 MG VIAL ONE (14:43)
[2023-05-21] MEDS: risperiDONE 1 MG TAB PO SCH (20:40)
[2023-05-21] MEDS: Acetaminophen 325 MG TAB PO PRN (20:40)
[2023-05-21] MEDS: predniSONE 50 MG TAB PO SCH (20:41)
[2023-05-21] MEDS: Melatonin 3 MG TAB PO PRN (20:41)
[2023-05-21] MEDS: hydrALAZINE 25 MG TAB PO SCH (20:41)
[2023-05-22] MEDS: Sevelamer Carbonate 800 MG TAB PO SCH ×4 (08:50→17:24)
[2023-05-22] MEDS: hydrALAZINE 25 MG TAB PO SCH ×4 (08:51→19:48)
[2023-05-22] MEDS: Cinacalcet HCl 30 MG TAB PO SCH (08:52)
[2023-05-22] MEDS ORDERED: CEFAZOLIN 2 GM in Sodium Chloride 0.9% 100 ML IVPB SCH (09:00)
[2023-05-22] MEDS: risperiDONE 1 MG TAB PO SCH (19:48)
[2023-05-22] MEDS: Apixaban 2.5 MG TAB PO SCH (21:40)
[2023-05-23] MEDS: hydrALAZINE 25 MG TAB PO SCH ×3 (09:29→21:00)
[2023-05-23] MEDS: Apixaban 2.5 MG TAB PO SCH ×2 (09:29→21:00)
[2023-05-23] MEDS: Cinacalcet HCl 30 MG TAB PO SCH (09:29)
[2023-05-23] MEDS: Sevelamer Carbonate 800 MG TAB PO SCH ×3 (09:29→16:59)
[2023-05-23] MEDS ORDERED: Heparin 10,000 UNITS/ 10 ML VIAL ONE (13:31)
[2023-05-23] MEDS: risperiDONE 1 MG TAB PO SCH (21:00)
[2023-05-23 22:39] VITALS: BP 131/75; TEMP 98.2
== END 2023-05-24 00:30 | disposition home or self-care (01) | DRG 252 ==
LOC: ERS 06:35 → SURG A 09:48 → OBSVTOIN 05-19 17:01
PROVIDERS: ADMIT Internal Medicine; ATTEND Family Medicine
PROC: 06HY33Z Insertion of Infusion Device into Lower Vein, Percutaneous Approach (ICD-10-PCS; 2023-05-18)
PROC: 3E033XZ Introduction of Vasopressor into Peripheral Vein, Percutaneous Approach (ICD-10-PCS; 2023-05-18)
PROC: 5A1D70Z Performance of Urinary Filtration, Intermittent, Less than 6 Hours Per Day (ICD-10-PCS; 2023-05-19)
PROC: B51W1ZZ Fluoroscopy of Dialysis Shunt/Fistula using Low Osmolar Contrast (ICD-10-PCS; principal; 2023-05-21)
PROC: 03773ZZ Dilation of Right Brachial Artery, Percutaneous Approach (ICD-10-PCS; 2023-05-21)
PROC: 3E04317 Introduction of Other Thrombolytic into Central Vein, Percutaneous Approach (ICD-10-PCS; 2023-05-21)
PROC: 5A1D70Z Performance of Urinary Filtration, Intermittent, Less than 6 Hours Per Day (ICD-10-PCS; 2023-05-21)
PROC: 5A1D70Z Performance of Urinary Filtration, Intermittent, Less than 6 Hours Per Day (ICD-10-PCS; 2023-05-23)
DX: T82.868A Thrombosis due to vascular prosthetic devices, implants and grafts, initial encounter (principal); N18.6 End stage renal disease; T82.590A Other mechanical complication of surgically created arteriovenous fistula, initial encounter; I12.0 Hypertensive chronic kidney disease with stage 5 chronic kidney disease or end stage renal disease; E87.1 Hypo-osmolality and hyponatremia; J44.9 Chronic obstructive pulmonary disease, unspecified; F31.9 Bipolar disorder, unspecified; D63.1 Anemia in chronic kidney disease; E11.22 Type 2 diabetes mellitus with diabetic chronic kidney disease; Z99.2 Dependence on renal dialysis; Z79.899 Other long term (current) drug therapy; Z88.7 Allergy status to serum and vaccine; Z88.8 Allergy status to other drugs, medicaments and biological substances; Z88.0 Allergy status to penicillin; Z88.5 Allergy status to narcotic agent; Z91.041 Radiographic dye allergy status; Z98.51 Tubal ligation status; Z98.890 Other specified postprocedural states; Z93.3 Colostomy status; Z99.81 Dependence on supplemental oxygen; Z83.3 Family history of diabetes mellitus
CPT/HCPCS: 36415; 36416; 36901; 71045; 80048; 80053; 85014; 85018; 85025; 86706; 87340; 90935; 93005; C1725; C1752; C1757; G0257; G0378; J0171; J0360; J1200; J1644; J2001; J2704; J2920; J2997; J3010; J3490; J7512; Q9967; S0020

== ENCOUNTER 2023-06-07 16:42 | Inpatient (IN) | payer OTHER ==
[2023-06-07 18:10] LABS: #Monocytes 0.1 thou/uL (0.11-0.59); #Neutrophils 5.5 thou/uL (1.40-6.50); %Basophils 0.2 % (0.0-1.0); %Eosinophils 0.2 % (0.0-10.0); %Lymphocytes 5.9 % (21.0-51.0); %Monocytes 0.8 % (0.0-10.0); %Neutrophils 92.6 % (42.0-75.0); Hematocrit 30.3 % (36.0-47.0); Hemoglobin 9.5 g/dL (12.0-16.0); Mean Corpuscular HGB CONC 31.4 g/dL (32.0-36.0); Mean Corpuscular Hemoglobin 31.8 pg (27.0-31.0); Mean Corpuscular Volume 101.3 fl (78.0-98.0); Mean Platelet Volume 10.6 fL (7.4-10.4); Platelet Count 156 10x3/uL (130-400); RBC Distribution Width 16.7 % (11.5-14.5); Red Blood Cell (RBC) Count 2.99 mill/uL (4.20-5.40); White Blood Cell (WBC) Count 5.9 10x3/uL (4.8-10.8)
[2023-06-07 18:32] LABS: ALT (SGPT) 10 U/L (8-55); AST (SGOT) 11 U/L (5-34); Albumin 3.4 g/dL (3.5-5.0); Alkaline Phosphatase 105 U/L (40-110); Anion Gap 19 mmol/L (10-20); BUN (Urea Nitrogen) 66 mg/dL (9.8-20.1); Bilirubin, Total 0.6 mg/dL (0.2-1.2); Calc. Creatinine Clearance 0 mL/min (70-130); Calcium 9.4 mg/dL (7.8-10.44); Carbon Dioxide 26 mmol/L (22-29); Chloride 99 mmol/L (98-107); Estimated GFR 4; Glucose 258 mg/dL (70-105); Magnesium 2.4 mg/dL (1.6-2.6); Protein, Total 6.4 g/dL (6.0-8.3); Sodium 140 mmol/L (136-145)
[2023-06-07] MEDS ORDERED: Acetaminophen 325 MG TAB PO PRN (21:32)
[2023-06-07] MEDS ORDERED: Ondansetron ODT 4 MG TAB PO PRN (21:32)
[2023-06-07] MEDS ORDERED: Senokot S 8.6-50 MG TAB PO PRN (21:32)
[2023-06-08 03:20] VITALS: BMI 39.6
[2023-06-08 06:24] LABS: #Monocytes 0.5 thou/uL (0.11-0.59); #Neutrophils 4.2 thou/uL (1.40-6.50); %Basophils 0.3 % (0.0-1.0); %Eosinophils 0.2 % (0.0-10.0); %Lymphocytes 16.8 % (21.0-51.0); %Monocytes 8.2 % (0.0-10.0); Hemoglobin 8.9 g/dL (12.0-16.0); Mean Corpuscular HGB CONC 31.8 g/dL (32.0-36.0); Mean Corpuscular Hemoglobin 31.3 pg (27.0-31.0); Mean Corpuscular Volume 98.6 fl (78.0-98.0); Mean Platelet Volume 9.6 fL (7.4-10.4); Platelet Count 165 10x3/uL (130-400); RBC Distribution Width 16.7 % (11.5-14.5); Red Blood Cell (RBC) Count 2.84 mill/uL (4.20-5.40); White Blood Cell (WBC) Count 5.7 10x3/uL (4.8-10.8)
[2023-06-08 06:48] LABS: Anion Gap 14 mmol/L (10-20); BUN (Urea Nitrogen) 42 mg/dL (9.8-20.1); Calc. Creatinine Clearance 13 mL/min (70-130); Calcium 9.4 mg/dL (7.8-10.44); Carbon Dioxide 29 mmol/L (22-29); Chloride 100 mmol/L (98-107); Estimated GFR 6; Glucose 142 mg/dL (70-105); Potassium 3.2 mmol/L (3.5-5.1); Sodium 140 mmol/L (136-145)
[2023-06-08] MEDS: Sevelamer Carbonate 800 MG TAB PO SCH ×3 (08:05→16:29)
[2023-06-08] MEDS: Cinacalcet HCl 30 MG TAB PO SCH (08:05)
[2023-06-08] MEDS: Famotidine 20 MG TAB PO SCH (08:05)
[2023-06-08] MEDS: risperiDONE 1 MG TAB PO SCH ×2 (08:05→20:21)
[2023-06-08] MEDS: Apixaban 2.5 MG TAB PO SCH ×2 (08:05→20:21)
[2023-06-08] MEDS: hydrALAZINE 25 MG TAB PO SCH ×3 (08:05→20:21)
[2023-06-08] MEDS ORDERED: Potassium Chloride 20 MEQ TAB PO SCH (08:15)
[2023-06-08] MEDS ORDERED: Epoetin (ESRD) 10,000 UNITS/ML VIAL IVP SCH (12:00)
[2023-06-08] MEDS ORDERED: Heparin 10,000 UNITS/ 10 ML VIAL ONE (13:00)
[2023-06-09] MEDS: Apixaban 2.5 MG TAB PO SCH (08:45)
[2023-06-09] MEDS: risperiDONE 1 MG TAB PO SCH (08:45)
[2023-06-09] MEDS: hydrALAZINE 25 MG TAB PO SCH ×2 (08:46→14:47)
[2023-06-09] MEDS: Famotidine 20 MG TAB PO SCH (08:46)
[2023-06-09] MEDS: Sevelamer Carbonate 800 MG TAB PO SCH ×2 (08:47→12:49)
[2023-06-09] MEDS: Cinacalcet HCl 30 MG TAB PO SCH (08:51)
[2023-06-09 12:32] VITALS: BP 131/79; TEMP 97.6
== END 2023-06-09 16:48 | disposition home or self-care (01) | DRG 314 ==
LOC: ERS 16:42 → OBSVTOIN 21:09 → T4-B 21:09
PROVIDERS: ADMIT Student in an Organized Health Care Education/Training Program; ATTEND Internal Medicine
PROC: 5A1D70Z Performance of Urinary Filtration, Intermittent, Less than 6 Hours Per Day (ICD-10-PCS; 2023-06-08)
PROC: 5A09357 Assistance with Respiratory Ventilation, Less than 24 Consecutive Hours, Continuous Positive Airway Pressure (ICD-10-PCS; principal; 2023-06-09)
DX: T82.590A Other mechanical complication of surgically created arteriovenous fistula, initial encounter (principal); N18.6 End stage renal disease; I12.0 Hypertensive chronic kidney disease with stage 5 chronic kidney disease or end stage renal disease; N25.81 Secondary hyperparathyroidism of renal origin; Z91.041 Radiographic dye allergy status; Z88.0 Allergy status to penicillin; Z88.8 Allergy status to other drugs, medicaments and biological substances; Z79.01 Long term (current) use of anticoagulants; E11.22 Type 2 diabetes mellitus with diabetic chronic kidney disease; E78.5 Hyperlipidemia, unspecified; Z98.890 Other specified postprocedural states; F41.9 Anxiety disorder, unspecified; F31.9 Bipolar disorder, unspecified; J44.9 Chronic obstructive pulmonary disease, unspecified; Z83.3 Family history of diabetes mellitus; D63.1 Anemia in chronic kidney disease; E87.6 Hypokalemia; Z99.2 Dependence on renal dialysis
CPT/HCPCS: 36415; 36416; 71045; 80048; 80053; 83735; 85025; 90935; 93005; G0257; J1644

== ENCOUNTER 2023-07-18 13:27 | Outpatient (CLI) | payer OTHER | END 2023-07-18 13:28 | disposition home or self-care (01) | LOC: RAD 13:27 | PROVIDERS: ATTEND Internal Medicine Critical Care Medicine | DX: R06.00 Dyspnea, unspecified (principal); J81.1 Chronic pulmonary edema; R09.89 Other specified symptoms and signs involving the circulatory and respiratory systems | CPT/HCPCS: 71046 ==

== ENCOUNTER 2024-01-24 08:00 | Outpatient (CLI) | payer OTHER | END 2024-01-24 08:01 | disposition home or self-care (01) | LOC: NM 08:00 | PROVIDERS: ATTEND Psychiatry & Neurology Neurology | DX: G20.C Parkinsonism, unspecified (principal) | CPT/HCPCS: 78803; A9584 ==

== ENCOUNTER 2024-04-14 11:54 | Outpatient (CLI) | payer OTHER | END 2024-04-14 11:55 | disposition home or self-care (01) | LOC: ULT 11:54 | PROVIDERS: ATTEND Family Medicine | DX: K65.1 Peritoneal abscess (principal) | CPT/HCPCS: 76705 ==